=== PATIENT | female | born 1940 | race Caucasian/White ===

== ENCOUNTER → 2020-05-02 14:22 | Outpatient (BNVA) | payer MEDICARE, SELFPAY | PROVIDERS: Visit Provider Internal Medicine | DX: I25.10 Atherosclerotic heart disease of native coronary artery without angina pectoris (principal); I65.23 Occlusion and stenosis of bilateral carotid arteries; Z95.1 Presence of aortocoronary bypass graft; Z86.79 Personal history of other diseases of the circulatory system; Z79.899 Other long term (current) drug therapy | CPT/HCPCS: 99212 ==

== ENCOUNTER → 2020-08-17 14:02 | Outpatient (BNVA) | payer MEDICARE, SELFPAY | PROVIDERS: PCP Family Medicine; Referring Provider Family Medicine; Visit Provider Surgery | DX: K94.09 Other complications of colostomy (principal); K50.90 Crohn's disease, unspecified, without complications; I10 Essential (primary) hypertension; I25.10 Atherosclerotic heart disease of native coronary artery without angina pectoris; Z98.890 Other specified postprocedural states; Z95.1 Presence of aortocoronary bypass graft; Z79.899 Other long term (current) drug therapy | CPT/HCPCS: 99212 ==

== ENCOUNTER → 2020-10-25 10:33 | Outpatient (BNVA) | payer MEDICARE, SELFPAY | PROVIDERS: PCP Family Medicine; Referring Provider Family Medicine; Visit Provider Internal Medicine | DX: I25.10 Atherosclerotic heart disease of native coronary artery without angina pectoris (principal); I65.23 Occlusion and stenosis of bilateral carotid arteries; I45.10 Unspecified right bundle-branch block; Z95.1 Presence of aortocoronary bypass graft; Z86.79 Personal history of other diseases of the circulatory system | CPT/HCPCS: 93005; 99212 ==

== ENCOUNTER 2020-11-01 13:13 | Outpatient (REF) | payer MEDICARE, SELFPAY ==
--- NOTE | ~2020-11-01 | US_ITS ---
EXAMINATION: US EXTRACRANIAL CAROTID DUPLEX, BILATERAL CLINICAL INFORMATION: This is an 80-year-old female with a history of occlusion and stenosis of bilateral carotid arteries. COMPARISON: Comparison is made to a previous study dated 06/18/2012 which demonstrate a bilateral 0-49% internal carotid artery stenoses. TECHNIQUE: Real-time ultrasound and Doppler techniques (integrating B-mode 2-D vascular images, Doppler spectral analysis and color-flow Doppler imaging) were utilized to interrogate the extracranial carotid arteries, the vertebral arteries and proximal subclavian arteries bilaterally. The degree of stenosis is determined by criteria similar to NASCET. FINDINGS: Right Side: 1. There is minimal atherosclerotic plaque seen in the bifurcation/proximal ICA region. 2. The common carotid artery PSV proximally is 71 cm/s and distally 67 cm/s. 3. The proximal internal carotid artery velocities are 64 cm/s systolic and 12 cm/s diastolic. 4. The proximal external carotid artery PSV is 71 cm/s. 5. The vertebral artery shows antegrade flow. 6. The subclavian artery waveforms are normal. Left Side: 1. There is minimal atherosclerotic plaque seen in the bifurcation/proximal ICA region. 2. The common carotid artery PSV proximally is 80 cm/s and distally 60 cm/s. 3. The proximal internal carotid artery velocities are 40 cm/s systolic and 13 cm/s diastolic. 4. The proximal external carotid artery PSV is 63 cm/s. 5. The vertebral artery shows antegrade flow. 6. The subclavian artery waveforms are normal. US/US carotid duplex BI IMPRESSION: 1. RIGHT: Minimal, non-hemodynamically significant stenosis of the proximal right internal carotid artery corresponding to a 0-49% stenosis by velocity criteria. 2. LEFT: Minimal, non-hemodynamically significant stenosis of the proximal left internal carotid artery corresponding to a 0-49% stenosis by velocity criteria. 3. There is no change in the category severity of disease when compared to the previous study dated 06/18/2012. 4. Incidental note is made of a cardiac arrhythmia during the examination using duplex. This would be best evaluated with an EKG.
== END 2020-11-01 13:14 | disposition home or self-care (01) ==
LOC: HO.US 13:13
PROVIDERS: PCP Family Medicine; Visit Provider Internal Medicine
DX: I65.23 Occlusion and stenosis of bilateral carotid arteries (principal)
CPT/HCPCS: 93880

== ENCOUNTER → 2020-12-02 08:14 | Outpatient (REF) | payer MEDICARE, SELFPAY ==
--- NOTE | 2020-12-02 08:19 | HM_ITS ---
Total monitoring time 2 days and 3 hours. Underlying rhythm is sinus. Minimum heart rate 44/Min. Maximum 91/Min. Average 61/Min. About 72% of the time, heart rate less than 60/Min. No atrial fibrillation or flutter. No pauses. Frequent supraventricular ectopy with a burden of almost 9%. One short run of 12 beats. No patient events. MTDD
--- NOTE | 2020-12-02 08:19 | CA_ITS ---
Transthoracic Echocardiogram Patient (Last, First, Middle): Farhana Light E Gender: Female Date of : 1940 Age: 80 Procedure Date: 12/02/2020 Procedure Type: Transthoracic Echocardiogram Location: OP Height: 160.02 cm Weight: 88.45 kg BSA: 1.91 m2 Heart Rate: bpm BP: 129 / 62 mmHg Resident Care Manager: JES Referring MD: Klaus Moore MD Symptoms: I25.10 - Atherosclerotic heart disease of [place] coronary... Study Quality: Fair ECG Rhythm: Sinus Conclusions: - The left ventricular systolic function is normal. The calculated ejection fraction is 66% by biplane method. - No obvious valvular pathology seen on this study. Findings Left Ventricle Normal left ventricular cavity size. There is normal left ventricular wall thickness. The left ventricular systolic function is normal. The calculated ejection fraction is 66% by biplane method. There is no evidence of regional wall motion abnormalities. E/E prime ratio is between 8 and 15 consistent with indeterminate filling pressures. Evidence suggests grade I (mild) diastolic dysfunction. LV peak GLS -15.8%. Right Ventricle Normal right ventricular cavity size. There is low normal right ventricular systolic function. TAPSE 1.78cm. Atria The left atrium is mildly dilated. The right atrium is normal in size. Aortic Valve There is mild calcification of the aortic valve. There is no aortic valve stenosis. Trace to mild aortic regurgitation. Mitral Valve The mitral valve appears normal. There is mild mitral annular calcification. There is trace mitral valve regurgitation. There is no mitral valve stenosis. Pulmonic Valve The pulmonic valve was not well visualized. Tricuspid Valve There is trace tricuspid valve regurgitation. The pulmonary artery systolic pressure is normal. Great Vessels The aorta was not well visualized. The aortic annulus and aortic arch are normal in size. Venous The inferior vena cava is normal in size and collapses greater than 50% with inspiration. Pericardium/Pleural There is no evidence of pericardial effusion. Recommendations, Care & Conclusions No obvious valvular pathology seen on this study. Measurements 2D Linear Measurements IVSd: 1.21 0.6-0.9/0.6-1.0 cm LVIDd: 4.53 3.9-5.3/4.2-5.9 cm LVIDd Index: 2.37 2.4-3.2/2.2-3.1 cm/m2 LVIDs: 2.80 2.0-3.6 cm LVPWd: 0.98 0.7-1.1 cm Ao Root: 3.10 2.1-3.5 cm LA Diam: 4.10 2.7-3.8/3.0-4.0 cm LAIDs Index: 2.15 1.5-2.3 cm/m2 LV Mass: 218.50 67-162/88-224 g LV Mass Index: 114.40 43-95/49-115 g/m2 LVOT Diam: 2.20 3.0+(-)1.3 cm 2D Systolic Function EF 4C: 65.40 >55% EF 2C: 63.30 >55% EF BiP: 65.80 >55% Mitral Valve MV Pk E: 0.60 MV PK A: 0.43 MV Decel Time: 184.00 E/A: 1.40 E'Lateral: 6.53 E'Medial: 5.33 E/E' Med: 11.30 E/E' Lat: 9.20 PHT: 54.00 MVA PHT: 4.07 Decel [place]: 3.26 Aortic Valve AoV Pk Savage: 1.33 AoV Pk Grad: 7.00 AI Pk Savage: 4.50 AI [place]: 1.91 LVOT LVOT Pk Savage: 0.92 LVOT Mn Savage: 0.59 LVOT VTI: 0.24 LVOT Pk Grad: 3.00 LVOT Mn Grad: 2.00 LVOT Diam: 2.20 LVOT Area: 3.80 Diastolic Function MV Pk E: 0.60 MV Pk A: 0.43 E/A: 1.40 E'Medial: 5.33 E/E' Med: 11.30 E' Laterial: 6.53 E/E' Lat: 9.20 Right Ventricle TAPSE (mm): 1.78 Tricuspid Valve TR Pk Savage: 2.48 TR Pk Grad: 25.00 RA Press: 3.00 Great Vessels Aorta Ao Root-2D: 3.10 2.0-3.7 cm Updated in Other Vendor System with Status of Final Klaus Moore MD electronically signed on 12/03/2020 11:27:01 AM with status of Final
== END ==
LOC: HO.CARD 08:14
PROVIDERS: PCP Family Medicine; Visit Provider Internal Medicine
DX: I25.10 Atherosclerotic heart disease of native coronary artery without angina pectoris (principal); I49.9 Cardiac arrhythmia, unspecified; I45.19 Other right bundle-branch block; Z95.1 Presence of aortocoronary bypass graft
CPT/HCPCS: 93242; 93306

== ENCOUNTER → 2021-01-18 10:36 | Outpatient (BNVA) | payer MEDICARE, SELFPAY | PROVIDERS: PCP Family Medicine; Referring Provider Family Medicine; Visit Provider Internal Medicine | DX: I25.10 Atherosclerotic heart disease of native coronary artery without angina pectoris (principal); I65.23 Occlusion and stenosis of bilateral carotid arteries; I45.10 Unspecified right bundle-branch block; I49.8 Other specified cardiac arrhythmias; Z95.1 Presence of aortocoronary bypass graft; Z86.79 Personal history of other diseases of the circulatory system | CPT/HCPCS: 99212 ==

== ENCOUNTER → 2021-07-25 10:41 | Outpatient (BNVA) | payer MEDICARE, SELFPAY | PROVIDERS: PCP Family Medicine; Referring Provider Family Medicine; Visit Provider Internal Medicine | DX: I25.10 Atherosclerotic heart disease of native coronary artery without angina pectoris (principal); I65.23 Occlusion and stenosis of bilateral carotid arteries; I45.10 Unspecified right bundle-branch block; I49.8 Other specified cardiac arrhythmias; Z95.1 Presence of aortocoronary bypass graft; Z86.79 Personal history of other diseases of the circulatory system | CPT/HCPCS: 99212 ==

== ENCOUNTER → 2022-02-07 11:05 | Outpatient (BNVA) | payer MEDICARE, SELFPAY | PROVIDERS: PCP Family Medicine; Visit Provider Internal Medicine | DX: I25.10 Atherosclerotic heart disease of native coronary artery without angina pectoris (principal); I65.23 Occlusion and stenosis of bilateral carotid arteries; I45.10 Unspecified right bundle-branch block; I49.8 Other specified cardiac arrhythmias; I25.2 Old myocardial infarction; Z79.82 Long term (current) use of aspirin; Z95.1 Presence of aortocoronary bypass graft; Z79.899 Other long term (current) drug therapy | CPT/HCPCS: 93005; 99212 ==

== ENCOUNTER → 2022-10-31 10:18 | Outpatient (REF) | payer MEDICARE, SELFPAY ==
--- NOTE | 2022-10-31 10:20 | HM_ITS ---
* Total monitoring time 3 days. * Underlying rhythm is sinus. Average ventricular rate 63/Min. Range 37 to 112/Min. * Rare supraventricular ectopy with low burden. * Rare ventricular ectopy. * No significant pauses or AV blocks. * No patient markers are events in diary. MTDD
== END ==
LOC: HO.CARD 10:18
PROVIDERS: PCP Family Medicine; Visit Provider Internal Medicine
DX: R00.2 Palpitations (principal); I49.8 Other specified cardiac arrhythmias
CPT/HCPCS: 93242

== ENCOUNTER 2023-02-12 10:30 | Outpatient (AMB) | payer MEDICARE, SELFPAY ==
[2023-02-12 10:44] VITALS: BP 128/66; PULSE 59; BMI 32.3
--- NOTE | 2023-02-12 10:44 | MHC.OFFVIS ---
Intake Vital Signs 02/12/23 10:44 Height 5 ft 3 in Weight 182 lb 8.684 oz BMI 32.3 BP 128/66 Blood Pressure Location Lt brachial Position Sitting Pulse 59 Intake Visit Reasons: 1 yr f/up Intake Note: 1 year follow up w/ EKG Legal Service Specialist Required: No Accompanied by: Spouse Allergies No Known Allergies Allergy (Verified 02/12/23 10:50) Medication List - Last Reconciled 02/12/23 by Klaus Moore MD aspirin 81 mg PO DAILY atorvastatin 40 mg PO DAILY donepezil 5 mg PO DAILY mesalamine ER grams PO HPI HPI Comments History of Present Illness Details Farhana returns for follow-up regarding coronary disease. After admission for NSTEMI in 2019, she underwent cardiac catheterization showing 2 vessel CAD including LAD and RCA. Subsequently, underwent coronary artery bypass surgery. She does have aches and pains in different parts but otherwise nothing cardiac sounding. Definitely no angina. [facility] Medical History Atherosclerotic cardiovascular disease Bilateral carotid artery stenosis Crohn's disease History of hypertension Stomal prolapse Surgical History Status post coronary artery bypass graft History of incisional hernia repair History of colostomy (~06/16/18) History of appendectomy History of cardiac catheterization (~03/16/19) Family History Father Heart attack Mother No problems noted. Social History Patient Tobacco Use Status: Never used Tobacco Review of Systems Const Denies weakness Card Denies chest pain, Denies chest pain with activity, Denies syncope, Denies rapid heart rate, Denies pedal edema, Denies edema, Denies leg edema, Reports lightheadedness, Denies palpitations, Denies dyspnea, Denies dyspnea on exertion and Denies orthopnea Resp Denies cough, Denies dyspnea and Denies dyspnea on exertion GI Denies hematochezia and Denies change in stool character Musc Denies abnormal gait, Denies muscle cramps, Denies muscle weakness, Denies numbness, Denies radiating pain into limb and Denies tingling Neuro Denies abnormal gait, Denies syncope, Denies numbness, Denies tingling and Denies weakness Endo Denies palpitations Physical Exam Vital Signs: Last Vital Signs Pulse 59 02/12/23 10:44 BP 128/66 02/12/23 10:44 BMI result Body Mass Index 32.3 Const General: comfortable and no acute distress Orientation/consciousness: patient oriented x3 HEENT Other: Unremarkable Head: Yes normal to inspection Neck Neck: Yes normal visual inspection Chest Chest palpation & inspection: normal inspection of the chest Resp Auscultation: clear to auscultation bilaterally Cardio Palpation: normal PMI Heart sounds: S1 normal heart sound present, S2 normal heart sound present, no gallops, no murmurs and no rubs GI Palpation (GI): Soft to palpation Back/Spine/Pelvis Other: unremarkable Skin General skin exam: no rashes or lesions noted Neuro General: patient oriented x3 Extrem General: Yes normal to inspection Psych Mental Status: mental status grossly normal Office Procedures EKG Details: EKG with sinus bradycardia 59/Min; incomplete right bundle-branch block; nonspecific ST-T changes; top normal NV 200 milliseconds. [id number], Complete Assessment & Plan Assessment & Plan (1) Atherosclerotic cardiovascular disease: Code(s): I25.10 - Atherosclerotic heart disease of [place] coronary artery without angina pectoris Plan: s/p CABG. Stable. Continue aspirin and statins. Last LDL 51 mg/dL. (2) RBBB: Code(s): I45.10 - Unspecified right bundle-branch block Plan: Can be followed on EKGs. (3) Atrial arrhythmia: Code(s): I49.8 - Other specified cardiac arrhythmias Plan: In the last Holter, underlying rhythm was sinus but she has frequent supraventricular ectopy with a burden of almost 9%. There is increased risk of developing atrial fibrillation the future. Was on beta-blockers in the past but stopped due to side effects. In the repeat Holter, she has only rare supraventricular/ventricular ectopy. No specific management. Coding Level of Care Code Est Pt Level 3 (06289) Diagnoses Atherosclerotic cardiovascular disease I25.10 RBBB I45.10 Atrial arrhythmia I49.8 CPT Codes EKG - CPT: 33866-[id number], Complete ([id number])
== END 2023-02-12 10:59 | disposition home or self-care (01) ==
PROVIDERS: Visit Provider Internal Medicine
DX: I25.10 Atherosclerotic heart disease of native coronary artery without angina pectoris (principal); I45.10 Unspecified right bundle-branch block; I49.8 Other specified cardiac arrhythmias
CPT/HCPCS: 93010; 99213

== ENCOUNTER → 2023-02-12 10:30 | Outpatient (BNVA) | payer MEDICARE, SELFPAY | PROVIDERS: Visit Provider Internal Medicine | DX: I25.10 Atherosclerotic heart disease of native coronary artery without angina pectoris (principal); I45.10 Unspecified right bundle-branch block; I49.8 Other specified cardiac arrhythmias; I25.2 Old myocardial infarction; Z79.82 Long term (current) use of aspirin; Z79.899 Other long term (current) drug therapy; Z95.1 Presence of aortocoronary bypass graft | CPT/HCPCS: 93005; 99212 ==

== ENCOUNTER 2023-03-20 12:37 | Observation (INO) | payer MEDICARE, SELFPAY ==
--- NOTE | ~2023-03-20 | XR_ITS ---
EXAMINATION: XR CHEST CLINICAL INFORMATION: Syncope. Fall. COMPARISON: Previous chest x-ray most recent March 2019 TECHNIQUE: Frontal view of the chest was obtained. FINDINGS: There are new median sternotomy wires and mediastinal clips. Cardiac and mediastinal contours are otherwise stable. Lungs are clear. No pleural effusion or pneumothorax. Only structures are unremarkable. XR/XR chest 1V IMPRESSION: No evidence for acute disease in the chest.
--- NOTE | ~2023-03-20 | CT_ITS ---
EXAMINATION: CT CERVICAL SPINE WITHOUT CONTRAST CLINICAL INFORMATION: Neck pain. Trauma. COMPARISON: None available. TECHNIQUE: Axial images through the cervical spine without IV contrast. Sagittal and coronal reconstructions on the technologist workstation were performed. This CT examination was performed using dose optimization techniques as appropriate, variously including the following: *Automated exposure control *Adjustment of mA and/or kV according to patient size (this includes techniques or standardized protocols for targeted exams where dose is matched to indication/reason for exam; i.e. extremities or head) *Use of iterative reconstruction technique This CT examination was performed using dose optimization techniques as appropriate, variously including the following: *Automated exposure control *Adjustment of mA and/or kV according to patient size (this includes techniques or standardized protocols for targeted exams where dose is matched to indication/reason for exam; i.e. extremities or head) *Use of iterative reconstruction technique DLP: 288 mGy-cm FINDINGS: Bone alignment is normal. No fracture or dislocation. There is multilevel degenerative spondylosis and degenerative disc disease from C3-C4 to C7-T1. There are degenerative changes at the C1 dens articulation. Prevertebral soft tissues are normal. Visualized lung apices are clear. CT/CT cervical spine wo IV con IMPRESSION: Degenerative changes. No fracture or dislocation seen. Fleischner guidelines were followed.
--- NOTE | ~2023-03-20 | CT_ITS ---
EXAMINATION: CT ANGIOGRAM OF THE CHEST WITH AND WITHOUT CONTRAST (CT PULMONARY ANGIOGRAM FOR PE) CLINICAL INFORMATION: Reason for Exam sob --> syncope COMPARISON: None available. TECHNIQUE: Prior to contrast administration, noncontrast localization images were obtained. Subsequently, multidetector volumetric imaging was performed from the thoracic inlet to below the diaphragms following the administration of 80 mL Omnipaque 350 intravenous contrast. No contrast reaction reported Sagittal, coronal, and MIP oblique sagittal reformatted images were obtained on the CT workstation, uploaded to PACS, and reviewed. This CT examination was performed using dose optimization techniques as appropriate, variously including the following: *Automated exposure control *Adjustment of mA and/or kV according to patient size (this includes techniques or standardized protocols for targeted exams where dose is matched to indication/reason for exam; i.e. extremities or head) *Use of iterative reconstruction technique Total exam dose-length product 299 mGy-cm FINDINGS: QUALITY OF STUDY/CONTRAST BOLUS: Satisfactory. PULMONARY ARTERIES: No pulmonary emboli. THORACIC AORTA: No aneurysm. LUNG: No focal consolidation, nodules or masses. Subsegmental atelectasis at the lung bases. PLEURA: No pleural effusion or pneumothorax. MEDIASTINUM: Enlarged heart. Post-CABG changes. No pericardial effusion. No hilar or mediastinal lymphadenopathy. No evidence of septal bowing or right heart strain. CORONARY ARTERY CALCIFICATION: Severe. CHEST WALL/AXILLA: No axillary or internal mammary lymphadenopathy. OSSEOUS STRUCTURES: No acute or suspicious osseous abnormality. Degenerative changes of the spine. UPPER ABDOMEN: See abdominal and pelvic CT report from the same day. No reflux of contrast into the hepatic veins to suggest elevated right heart pressures. CT/CT angio chest PE protocol IMPRESSION: No evidence of pulmonary embolism. No acute findings in the chest. VTE: negative
--- NOTE | ~2023-03-20 | CT_ITS ---
EXAMINATION: CT HEAD WITHOUT CONTRAST CLINICAL INFORMATION: Syncope. Head trauma. COMPARISON: Previous head CT from 2017 TECHNIQUE: Contiguous axial imaging was performed from the skull base to vertex without intravenous administration of contrast. This CT examination was performed using dose optimization techniques as appropriate, variously including the following: *Automated exposure control *Adjustment of mA and/or kV according to patient size (this includes techniques or standardized protocols for targeted exams where dose is matched to indication/reason for exam; i.e. extremities or head) *Use of iterative reconstruction technique DLP: 558 mGy-cm FINDINGS: There is no evidence of an extra-axial collection. There is no evidence of intra or extra-axial hemorrhage. The ventricles and extra-axial CSF spaces are prominent just above mild generalized atrophy. There is nonspecific periventricular white matter disease. No mass, mass effect or infarct. No skull fracture. Visualized paranasal sinuses, mastoid air cells and middle ears are clear. CT/CT head/brain wo IV con IMPRESSION: No acute intracranial pathology. Generalized atrophy and nonspecific periventricular matter disease.
--- NOTE | ~2023-03-20 | US_ITS ---
EXAMINATION: US EXTRACRANIAL CAROTID DUPLEX, BILATERAL CLINICAL INFORMATION: Carotid artery stenosis COMPARISON: Carotid duplex on 11/01/2020 TECHNIQUE: Real-time ultrasound and Doppler techniques (integrating B-mode 2-D vascular images, Doppler spectral analysis and color-flow Doppler imaging) were utilized to interrogate the extracranial carotid arteries, the vertebral arteries and proximal subclavian arteries bilaterally. The degree of stenosis is determined by criteria similar to NASCET. FINDINGS: Right Side: 1. There is minimal atherosclerotic plaque seen in the bifurcation/proximal ICA region. 2. The common carotid artery PSV proximally is 92 cm/s and distally 77 cm/s. 3. The proximal internal carotid artery velocities are 52 cm/s systolic and 7 cm/s diastolic. 4. The proximal external carotid artery PSV is 89 cm/s. 5. The vertebral artery shows antegrade flow. 6. The subclavian artery waveforms are normal. Left Side: 1. There is mild atherosclerotic plaque seen in the bifurcation/proximal ICA region. 2. The common carotid artery PSV proximally is 92 cm/s and distally 80 cm/s. 3. The proximal internal carotid artery velocities are 48 cm/s systolic and 13 cm/s diastolic. 4. The proximal external carotid artery PSV is 90 cm/s. 5. The vertebral artery shows antegrade flow. 6. The subclavian artery waveforms are normal. US/US carotid duplex BI IMPRESSION: 1. RIGHT: Minimal, non-hemodynamically significant stenosis of the proximal right internal carotid artery corresponding to a 0-49% stenosis by velocity criteria. 2. LEFT: Minimal, non-hemodynamically significant stenosis of the proximal left internal carotid artery corresponding to a 0-49% stenosis by velocity criteria.
--- NOTE | ~2023-03-20 | CT_ITS ---
EXAMINATION: CT ABDOMEN AND PELVIS WITH CONTRAST CLINICAL INFORMATION: Syncope COMPARISON: Previous CT of the abdomen and pelvis April 2018 TECHNIQUE: Multidetector volumetric images were obtained from the superior aspect of the liver through the pubic symphysis following administration 85 mL of Omnipaque 350 intravenous contrast. Sagittal and coronal reformatted images were obtained on the technologist's workstation. Oral contrast: Yes This CT examination was performed using dose optimization techniques as appropriate, variously including the following: *Automated exposure control *Adjustment of mA and/or kV according to patient size (this includes techniques or standardized protocols for targeted exams where dose is matched to indication/reason for exam; i.e. extremities or head) *Use of iterative reconstruction technique DLP: 299 mGy-cm FINDINGS: LUNG BASES: The visualized lung bases are unremarkable. LIVER, GALLBLADDER, AND BILIARY TREE: The liver is normal in size, shape, and attenuation. No focal hepatic lesion or biliary ductal dilatation is present. Gallstones. Gallbladder is otherwise unremarkable. PANCREAS: Unremarkable. SPLEEN: Unremarkable. ADRENAL GLANDS: Unremarkable. KIDNEYS AND URETERS: Severe left hydronephrosis and left proximal ureteral dilatation. This is increased compared to 2019 exam. The left ureter is dilated down to an area where there is irregular soft tissue in the left retroperitoneum adjacent to the proximal sigmoid colon. No stone is seen. The right kidney is normal. BLADDER: Unremarkable. GASTROINTESTINAL TRACT: There are postsurgical changes from a transverse colon loop colostomy. There is diverticulosis of the colon. There is a segment of abnormal of tethered loops of small and large bowel left lower. There may be some mild wall thickening of the involved sigmoid colon. There is adjacent abnormal soft tissue in the retroperitoneum likely causing left hydronephrosis and ureteral dilatation. Findings are similar to older exam 2019. This makes neoplastic process unlikely favors an infectious or inflammatory process. Small and large bowel is otherwise normal. Appendix not definitely seen. ABDOMINAL WALL: There is a low abdominal diffuse abdominal wall bulge or broad-based hernia without and neck containing small bowel. No evidence of obstruction. LYMPH NODES: Normal. VASCULAR: Atherosclerotic disease. 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 Follow-up OB ultrasound recommended. Adnexa appear unremarkable. OSSEOUS STRUCTURES: L4 pars defect and mild interstitial disease in similar to previous exam. Degenerative changes spine CT/CT abdomen pelvis w IV con IMPRESSION: Severe left hydronephrosis and proximal ureteral dilatation increased from April 2018 left ureter appears dilated secondary to abnormal soft tissue left retroperitoneum. There are tethered loops of small and large bowel seen in this region similar to April 2018 exam and post infectious or inflammatory scarring over neoplasm is favored. Transverse loop colostomy. Mild diverticulosis. Large lower abdominal wall bulge/broad-based hernia with wide neck containing small bowel. No evidence of obstruction. Question endometrial fluid or thickening. Follow-up pelvic ultrasound recommended No significant abnormality. Fleischner guidelines were followed.
--- NOTE | 2023-03-20 12:45 | ECG_ITS ---
Test Reason : SYNCOPE Blood Pressure : / mmHG Vent. Rate : 056 BPM Atrial Rate : 056 BPM P-R Int : 232 ms QRS Dur : 122 ms QT Int : 470 ms P-R-T Axes : 008 -35 004 degrees QTc Int : 453 ms Sinus bradycardia with 1st degree A-V block Left axis deviation Right bundle branch block Possible Lateral infarct (cited on or before 14-MAR-2019) Abnormal ECG When compared with ECG of 14-MAR-2019 15:12, SC interval has increased Right bundle branch block is now Present Referred By: Rohit Shah Electronically Signed By:DOROTA VELASQUEZ
--- NOTE | 2023-03-20 12:47 | ED_ITS ---
HPI - General Adult General Chief complaint: Syncope Stated complaint: SYNCOPAL EPISODE AT [employer] PER EMS Time Seen by Provider: 03/20/23 12:45 Source: patient Mode of arrival: ambulatory Limitations: other (Poor historian) History of Present Illness HPI narrative: This is a 83-year-old female history of mild dementia atrial arrhythmia colostomy in place since 2019, carotid stenosis, right bundle-branch block, status post coronary artery bypass graft, presenting to the emergency department status post witnessed syncopal episode while at the grocery store with an episode of around 30 seconds of loss of consciousness. Patient tells me she was not feeling great this morning she felt slightly lightheaded and short of breath since she awoke. Proceeded to go to the grocery store where she does not really remember what happened. At this time denies fevers, chills, chest pain, shortness of breath, headache, vision changes, dizziness, weakness, nausea, vomiting, diarrhea, abdominal pain Not on thinners Related Data Home Medications Medication Instructions Recorded Confirmed aspirin 81 mg tablet,delayed 81 mg PO DAILY 05/02/20 02/12/23 release atorvastatin 40 mg tablet 40 mg PO DAILY 05/02/20 02/12/23 donepezil 5 mg tablet 5 mg PO DAILY 02/12/23 02/12/23 mesalamine 0.375 gram g PO 02/12/23 02/12/23 capsule,extended release 24 hr Allergies Allergy/AdvReac Type Severity Reaction Status Date / Time No Known Allergies Allergy Verified 02/12/23 10:50 Review of Systems 2 Review of Systems: Yes all other systems are reviewed and are negative PMFSH Past Medical History Attestation statement: The following information was validated with the patient. Source: old records reviewed and nursing notes reviewed Medical History Stomal prolapse Crohn's disease Bilateral carotid artery stenosis History of hypertension Atherosclerotic cardiovascular disease Surgical History Status post coronary artery bypass graft History of incisional hernia repair History of colostomy (~06/16/18) History of appendectomy History of cardiac catheterization (~03/16/19) Family History Family History Father Heart attack Mother No problems noted. Social History Social History Patient Tobacco Use Status: Never used Tobacco Smoked in Last 30 Days: No Use of substances other than those prescribed or required for medical reasons: No Advance Directives: No Advance Directives Information Provided: Yes Physical Exam ED Vital Signs: Vital Signs - 24 hr 03/20/23 12:51 03/20/23 13:04 Temperature 97.6 F Pulse Rate 58 Respiratory Rate 16 Blood Pressure 103/49 L Pulse Oximetry 97 97 Oxygen Delivery Method Room Air Room Air BMI result Body Mass Index 32.6 Vital signs stable Appearance: Alert.? Oriented X3.? No acute distress.? Head: Normocephalic, atraumatic, no step-offs or deformities Eyes: Pupils equal, round and reactive to light.? CVS: Normal heart rate and rhythm.? Pulses normal.? Respiratory: No respiratory distress.? Breath sounds normal.? Abdomen: Soft and nontender.? Skin: Skin warm and dry.? Normal skin color.? Normal skin turgor.? Extremities: No lower extremity edema.? No calf ttp. 5/5 strength to bilateral upper and lower extremities Back: No midline tenderness, no C-spine tenderness, full range of motion, no CVA tenderness bilaterally Neuro: Oriented X 3.? No motor deficit.? No sensory deficit. CN 2-12 intact . 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 Normal [id number], [id number]. NIH stroke scale 0 Course Reevaluation(s) Reevaluation #1: CBC with leukocytosis and left shift. Chemistry no acute findings requiring intervention. Troponin pending. D-dimer positive. CTA ordered. UA without infection. Chest x-ray no signs of acute disease. Time: 16:31 Reevaluation #2: Sign out to aleks [place] Time: 16:31 Medical Decision Making Medical Decision Making [facility] Narrative: 1254 83-year-old female presents status post witnessed syncope at the grocery store. Denies any pain at this time but does report lightheadedness and shortness of breath prior to the fall earlier this morning. Not on blood thinners Physical exam benign History and physical exam concerning for possible arrhythmia versus PE versus vasovagal versus orthostatic hypotension. Will rule out UTI, electrolyte abnormalities traumatic injury to head, neck, chest, abdomen or pelvis. History and physical exam also slightly suspicious for ACS patient poor historian. Will have to do a cardiac workup. Plan labs, imaging, urine, EKG Differential Diagnosis Differential Diagnoses: The differential diagnosis associated with the presentation includes History and physical exam concerning for possible arrhythmia versus PE versus vasovagal versus orthostatic hypotension. Will rule out UTI, electrolyte abnormalities traumatic injury to head, neck, chest, abdomen or pelvis. History and physical exam also slightly suspicious for ACS patient poor historian. Will have to do a cardiac workup. Admission/Observation Consideration of admission/observation: Escalation of care including admission/observation considered Lab Data MDM Lab Attestation statement: I reviewed the patient's lab results. 03/20/23 16:02 03/20/23 16:02 Labs: Lab Results 03/20/23 03/20/23 Range/Units 15:55 16:02 WBC 13.3 H (4.8-10.8) X10*3/uL RBC 4.54 (4.20-5.50) X10*6/uL Hgb 12.4 (12.0-16.0) g/dl Hct 39.2 (37.0-47.0) % MCV 86.3 (80.0-98.0) fL MCH 27.3 (27.0-33.0) pg MCHC 31.6 (31.0-35.0) g/dl RDW 15.7 (11.0-16.0) % Plt Count 336 (160-400) X10*3/uL MPV 9.4 (9.4-12.3) fL Immature Gran % (Auto) 0.4 (0.0-0.4) % Neut % (Auto) 87.3 H (45-73) % Lymph % (Auto) 6.2 L (20-40) % Noble % (Auto) 5.3 (2-11) % Eos % (Auto) 0.5 (0-4) % Baso % (Auto) 0.3 (0-2) % Lymph # (Auto) 0.8 L (1.2-4.9) X10*3/uL Noble # (Auto) 0.7 (0.1-1.2) X10*3/uL Eos # (Auto) 0.1 (0.0-0.4) X10*3/uL Baso # (Auto) 0.0 (0.0-0.2) X10*3/uL Abs Immat Gran (auto) 0.05 H (0.00-0.03) X10*3/uL Absolute Neuts (auto) 11.6 H (2.0-8.3) x10*3/uL Absolute Nucleated RBC 0.000 (0.0-0.012) X10*3/uL Nucleated RBC % (auto) 0.0 (0.0-0.2) /100WBC PT 13.4 H (11.1-13.3) SEC INR 1.1 (0.9-1.1) D-Dimer High Sensitivty 472 NG/ML Sodium 141 (135-145) mmol/L Potassium 4.0 (3.3-5.1) mmol/L Chloride 104 (96-108) mmol/L Carbon Dioxide 28 (22-29) mmol/L Anion Gap 13 (12-20) BUN 11 (9-16) mg/dL Creatinine 0.81 (0.5-1.4) mg/dL Estim Creat Clear Calc 51.9 Estimated GFR > 60 Random Glucose 114 (60-115) mg/dL Calcium 9.6 (8.4-10.2) mg/dL Magnesium 1.9 (1.6-2.6) mg/dL Total Bilirubin 0.5 (0.0-1.0) mg/dL AST 15 (5-31) U/L ALT 11 (0-31) U/L Alkaline Phosphatase 138 H (39-117) U/L Total Protein 7.7 (6.5-8.0) g/dL Albumin 4.2 (3.5-5.0) g/dL Lipase 22 (8-78) U/L Urine Color Yellow Urine Appearance Clear Urine pH 7.0 (5.0-9.0) Ur Specific Hermon <= 1.005 (1.005-1.025) Urine Protein Negative (Neg-Trace) mg/dL Urine Glucose (UA) Negative (Negative) mg/dL Urine Ketones Negative (Negative) mg/dL Urine Blood Negative (Negative) Urine Nitrite Negative (Negative) Ur Leukocyte Esterase Negative (Negative) Discharge Plan Discharge Clinical Impression: Syncope Patient Disposition: Still a Patient Prescriptions: No Action atorvastatin 40 mg tablet 40 mg PO DAILY aspirin 81 mg tablet,delayed release (DR/EC) 81 mg PO DAILY mesalamine 0.375 gram capsule,extended release 24hr PO donepezil 5 mg tablet 5 mg PO DAILY
[2023-03-20 12:51] VITALS: BP 103/49; BP 142/87; PULSE 58; PULSE 62; RESP 16; TEMP 36.4; O2SAT 97; O2SAT 99; BMI 32.6
[2023-03-20 13:04] VITALS: O2SAT 97
[2023-03-20 16:08] LABS: MANUAL DIFF FLAG NO
[2023-03-20 16:11] LABS: Basophils Percent Auto 0.3 % (0-2); Eosinophils Absolute Auto 0.1 X10*3/uL (0.0-0.4); Eosinophils Percent Auto 0.5 % (0-4); Hematocrit 39.2 % (37.0-47.0); Hemoglobin 12.4 g/dl (12.0-16.0); Imm Gran Abs Auto 0.05 X10*3/uL (0.00-0.03); Imm Gran Pct Auto 0.4 % (0.0-0.4); Lymphocytes Absolute Auto 0.8 X10*3/uL (1.2-4.9); Lymphocytes Percent Auto 6.2 % (20-40); Mean Corpuscular HGB Conc 31.6 g/dl (31.0-35.0); Mean Corpuscular Hemoglobin 27.3 pg (27.0-33.0); Mean Corpuscular Volume 86.3 fL (80.0-98.0); Mean Platelet Volume 9.4 fL (9.4-12.3); Monocytes Absolute Auto 0.7 X10*3/uL (0.1-1.2); Monocytes Percent Auto 5.3 % (2-11); Neutrophils Absolute Auto 11.6 x10*3/uL (2.0-8.3); Neutrophils Percent Auto 87.3 % (45-73); Platelet Count 336 X10*3/uL (160-400); Red Blood Count 4.54 X10*6/uL (4.20-5.50); Red Cell Distribution Width 15.7 % (11.0-16.0); White Blood Count 13.3 X10*3/uL (4.8-10.8)
[2023-03-20 16:11] LABS: Appearance Urine Clear; Color Urine Yellow; Glucose Urine UA Negative (Negative); Leukocyte Esterase Urine Negative (Negative); Nitrite Urine Negative (Negative); Specific Gravity - Urine <= 1.005 (1.005-1.025); Urine Blood Negative (Negative); Urine Ketones Negative (Negative); Urine Protein Negative (Neg-Trace)
[2023-03-20 16:16] LABS: INTERNATIONAL NORM RATIO 1.1 (0.9-1.1); Prothrombin Time 13.4 SEC (11.1-13.3)
[2023-03-20 16:18] LABS: D Dimer High Sensitivity 472 NG/ML
[2023-03-20 16:26] LABS: Alanine Aminotransferase 11 U/L (0-31); Albumin Level 4.2 g/dL (3.5-5.0); Alkaline Phosphatase 138 U/L (39-117); Anion Gap 13 (12-20); Aspartate Amino Transferase 15 U/L (5-31); Bilirubin Total 0.5 mg/dL (0.0-1.0); Blood Urea Nitrogen 11 mg/dL (9-16); Calcium 9.6 mg/dL (8.4-10.2); Carbon Dioxide 28 mmol/L (22-29); Chloride 104 mmol/L (96-108); Creatinine Clr Calc Pharmacy 51.9; Estimated Glomerular Filt Rate > 60; Glucose Random 114 mg/dL (60-115); Lipase 22 U/L (8-78); Magnesium 1.9 mg/dL (1.6-2.6); Sodium 141 mmol/L (135-145); Total Protein 7.7 g/dL (6.5-8.0)
[2023-03-20 16:34] LABS: Troponin-I High Sensitivity < 2.7 ng/L (<3.5-17.0)
[2023-03-20] MEDS: iohexoL 350 MG/ML 100 ML INFUS..BTL 85 ML IV (18:02)
[2023-03-20 20:00] VITALS: BP 110/52; PULSE 62; RESP 16; O2SAT 97
--- NOTE | 2023-03-20 20:16 | PC.NURSE ---
Assumed care of pt. Pt provided with PO food/drink per provider in setting of negative imagine.
[2023-03-20 21:08] LABS: Troponin-I High Sensitivity < 2.7 ng/L (<3.5-17.0)
[2023-03-20 21:34] VITALS: BP 170/57; PULSE 77
[2023-03-20 21:35] VITALS: BP 116/67; BP 149/86; PULSE 104; PULSE 86
[2023-03-20 21:37] VITALS: BP 107/57; PULSE 78; RESP 20; TEMP 36.8; O2SAT 96
[2023-03-20] MEDS: 0.9 % Sodium Chloride 1,000 ML 999 ML IV (21:46)
--- NOTE | 2023-03-20 22:06 | PHA.MEDREC ---
Pharmacy Consult ? Medication Reconciliation Pharmacy has reviewed the medication reconciliation completed by provider. Patient dose of donepezil recently increase to 10 mg. Provider aware and order adjust. Patricia De Leon, DarekD
--- NOTE | 2023-03-20 23:46 | PM.IMHP ---
History of Present Illness Date of Service: 03/20/23 Attending physician on admission: Ramin Esposito Chief Complaint: Loss of consciousness Farhana Light 83 years old woman with past medical history significant for dementia, Crohn's disease status post colostomy, CAD status post CABG and hyperlipidemia was brought to the emergency department after she had an event of loss of consciousness today while at the grocery store. Her was with her and witnessed the event. He stated that she recovered consciousness pretty quickly returned to her baseline. The patient stated that she felt lightheaded and nauseous (no vomiting) before passing out. She has not noted increased output out of her colostomy. She denied palpitations, chest pain or shortness on breath. She also denies headache, focal weakness, gait or speech difficulty. She denied any cardiopulmonary, gastrointestinal or genitourinary symptoms. There is no history of alcohol abuse, tobacco smoking or illicit drug use. She does not have history of arrhythmias and is not taking diuretics. In the ED, she was found to have stable vital signs. Her last blood pressure is 107/57. Blood workup is remarkable for leukocytosis, 13.3. There are no electrolyte imbalances. Liver and renal function are normal. Troponin is negative x2. EKG showed right bundle branch block, sinus bradycardia 56 beats per minutes and first-degree AV block. Currently her cardiac monitoring is showing a heart rate of 80 bpm. 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 ED tx: NS 1 L bolus. Review of Systems Review of Systems: All 12 systems were reviewed and normal except as noted in HPI. [facility] Medical History Stomal prolapse Crohn's disease Bilateral carotid artery stenosis History of hypertension Atherosclerotic cardiovascular disease Family History Father Heart attack Mother No problems noted. Surgical History Status post coronary artery bypass graft History of incisional hernia repair History of colostomy (~06/16/18) History of appendectomy History of cardiac catheterization (~03/16/19) Social History Patient Tobacco Use Status: Never used Tobacco Smoked in Last 30 Days: No Use of substances other than those prescribed or required for medical reasons: No Advance Directives: No Advance Directives Information Provided: Yes Meds Allergies Allergy/AdvReac Type Severity Reaction Status Date / Time No Known Allergies Allergy Verified 02/12/23 10:50 Active Medications: Current Medications Acetaminophen (Acetaminophen 325 Mg Tablet) 975 mg PO Q6H PRN PRN Reason: Pain, Mild (Pain Scale 1-3) Aspirin (Aspirin Enteric Coated 81 Mg Tablet.) 81 mg PO DAILY MIGUEL Atorvastatin Calcium (Atorvastatin Calcium 40 Mg Tablet) 40 mg PO DAILY MIGUEL Donepezil HCl (Donepezil Hcl 10 Mg Tablet) 10 mg PO DAILY MIGUEL Melatonin (Melatonin 3 Mg Tablet) 6 mg PO BEDTIME PRN PRN Reason: Insomnia Sodium Chloride (0.9 % Sodium Chloride Flush 3 Ml Syringe) 3 ml IVFLUSH QSHIFT REPLACED BY [facility] Home Medications Medication Instructions Recorded Confirmed Last Taken Type aspirin 81 mg tablet,delayed 81 mg PO DAILY 05/02/20 03/20/23 Unknown History release atorvastatin 40 mg tablet 40 mg PO DAILY 05/02/20 03/20/23 Unknown History donepezil 5 mg tablet 10 mg PO DAILY 02/12/23 03/20/23 Unknown History mesalamine 0.375 gram 0.75 g PO DAILY 02/12/23 03/20/23 Unknown History capsule,extended release 24 hr Physical Exam Vital Signs and Narrative: Vital Signs: Last Vital Signs Temp 98.3 F 03/20/23 21:37 Pulse 78 03/20/23 21:37 Resp 20 03/20/23 21:37 BP 107/57 L 03/20/23 21:37 Pulse Ox 96 03/20/23 21:37 O2 Del Method Room Air 03/20/23 21:37 BMI result Body Mass Index 32.6 Constitutional - Awake and Alert, No apparent distress. Afebrile. Cooperative. HEENT - PERRLA, EOMI. Cardiovascular - S1S2, RRR, No edema Respiratory - Normal lung expansion, Normal respiratory effort, No respiratory distress, CTA bilaterally Gastrointestinal - NT / ND; +BS; No rebound or guarding. Colostomy bag in place (back is full) - No CVA tenderness Extremities - No calf tenderness bilaterally, no swelling Musculoskeletal - Normal inspection, normal ROM Skin - Warm/Dry Neurological - Alert & oriented x3. No focal weakness grossly noted. Normal speech. Normal behavior. Psychological - Appropriate affect Results Labs 03/20/23 16:02 03/20/23 16:02 Labs: Laboratory Results - last 24 hr 03/20/23 03/20/23 15:55 16:02 MCV 86.3 MCH 27.3 MCHC 31.6 RDW 15.7 Plt Count 336 MPV 9.4 Immature Gran % (Auto) 0.4 Neut % (Auto) 87.3 H Lymph % (Auto) 6.2 L [place] % (Auto) 5.3 Eos % (Auto) 0.5 Baso % (Auto) 0.3 Lymph # (Auto) 0.8 L [place] # (Auto) 0.7 Eos # (Auto) 0.1 Baso # (Auto) 0.0 Abs Immat Gran (auto) 0.05 H Absolute Neuts (auto) 11.6 H Absolute Nucleated RBC 0.000 Nucleated RBC % (auto) 0.0 PT 13.4 H INR 1.1 D-Dimer High Sensitivty 472 Anion Gap 13 Estim Creat Clear Calc 51.9 Estimated GFR > 60 Random Glucose 114 Calcium 9.6 Magnesium 1.9 Total Bilirubin 0.5 AST 15 ALT 11 Alkaline Phosphatase 138 H Total Protein 7.7 Albumin 4.2 Lipase 22 Urine Color Yellow Urine Appearance Clear Urine pH 7.0 Ur Specific [place] <= 1.005 Urine Protein Negative Urine Glucose (UA) Negative Urine Ketones Negative Urine Blood Negative Urine Nitrite Negative Ur Leukocyte Esterase Negative Imaging Radiologist's Impressions: Impressions Chest X-Ray 03/20/23 13:30 IMPRESSION: No evidence for acute disease in the chest. Head CT 03/20/23 18:00 IMPRESSION: No acute intracranial pathology. Generalized atrophy and nonspecific periventricular matter disease. Cervical Spine CT 03/20/23 18:01 IMPRESSION: Degenerative changes. No fracture or dislocation seen. Fleischner guidelines were followed. Abdomen/Pelvis CT 03/20/23 18:27 IMPRESSION: Severe left hydronephrosis and proximal ureteral dilatation increased from April 2018 left ureter appears dilated secondary to abnormal soft tissue left retroperitoneum. There are tethered loops of small and large bowel seen in this region similar to April 2018 exam and post infectious or inflammatory scarring over neoplasm is favored. Transverse loop colostomy. Mild diverticulosis. Large lower abdominal wall bulge/broad-based hernia with wide neck containing small bowel. No evidence of obstruction. Question endometrial fluid or thickening. Follow-up pelvic ultrasound recommended No significant abnormality. Fleischner guidelines were followed. Chest CTA 03/20/23 18:27 IMPRESSION: No evidence of pulmonary embolism. No acute findings in the chest. VTE: negative Assessment and Plan (1) Syncope: Status: Acute (2) History of hypertension: Status: Acute Plan Farhana Light 83 years old woman presents with: Syncope. Keep in observation. Orthostatic vital signs. Echocardiogram and bilateral carotid ultrasound. Cardiology consult. Leukocytosis, cause unclear. No serious criteria or evidence of acute infection. Possible dehydration. Normal saline given in the emergency department. We will continue to monitor WBC count. Severe left-sided hydronephrosis, seems to be chronic but getting worse. Patient denies flank pain or any acute urinary symptoms. To consider Urology consult. Coronary artery disease. No chest pain. Continue statin and aspirin. History of bilateral carotid artery occlusion and stenosis. Last carotid ultrasound 2020 showed no significant stenosis. Will obtain bilateral carotid ultrasound. Hyperlipidemia. Continue statin. Crohn's disease. Continue mesalamine. Dementia. Continue donepezil. DVT prophylaxis: SCDs. Code status: Full. Quality Stroke Does the patient have a stroke diagnosis?: No VTE Prior VTE?: No VTE Risk Level:: Medical - moderate - high VTE Device Contraindication: N/A - Device Ordered VTE Drug Contraindication: Treatment Not Indicated
[2023-03-21] VITALS (9 sets, daily range): BP systolic 124–159; BP diastolic 48–73; PULSE 57–89; RESP 10–20; TEMP 36.2–36.6; O2SAT 94–98
[2023-03-21] MEDS: 0.9 % Sodium Chloride Flush 3 ML SYRINGE IVFLUSH ×3 (01:47→15:39)
--- NOTE | 2023-03-21 02:52 | PC.NURSE ---
Emptied pt colostomy bag.
[2023-03-21 06:14] LABS: Troponin-I High Sensitivity 4.1 ng/L (<3.5-17.0)
--- NOTE | 2023-03-21 07:00 | CA_ITS ---
Transthoracic Echocardiogram Patient (Last, First, Middle): Farhana Light E Gender: Female Date of : 1940 Age: 83 Procedure Date: 03/21/2023 Procedure Type: Transthoracic Echocardiogram Location: ER Height: 160. cm Weight: 83.46 kg BSA: 1.87 m2 Heart Rate: 60 bpm BP: 134 / 61 mmHg Industrial Relations Specialist: YAYA Referring MD: Ramin Esposito MD Symptoms: Syncope Study Quality: Adequate ECG Rhythm: Sinus Conclusions: - The left ventricular systolic function is normal. The visually estimated ejection fraction is between 65-70%. - No obvious valvular pathology seen on this study. Findings Left Ventricle Normal left ventricular cavity size. There is normal left ventricular wall thickness. The left ventricular systolic function is normal. The visually estimated ejection fraction is between 65-70%. There is no evidence of regional wall motion abnormalities. Diastolic function is normal for age. LV peak GLS -20%. Right Ventricle Normal right ventricular cavity size and systolic function. Atria Both atria are normal in size. Aortic Valve There is a normal trileaflet aortic valve. There is mild calcification of the aortic valve. There is no aortic valve stenosis. There is trace (trivial) aortic valve regurgitation. Mitral Valve The mitral valve appears normal. There is trace mitral valve regurgitation. There is no mitral valve stenosis. Pulmonic Valve The pulmonic valve is likely normal. Tricuspid Valve There is trace tricuspid valve regurgitation. There is no evidence of pulmonary hypertension. Great Vessels The asc aorta is normal in size. Venous The inferior vena cava is normal in size and collapses greater than 50% with inspiration. Pericardium/Pleural There is no evidence of pericardial effusion. Prior Study Comparison No significant change compared to prior study dated: 12/02/2020. Recommendations, Care & Conclusions No obvious valvular pathology seen on this study. Measurements 2D Linear Measurements IVSd: 0.97 0.6-0.9/0.6-1.0 cm LVIDd: 4.62 3.9-5.3/4.2-5.9 cm LVIDd Index: 2.47 2.4-3.2/2.2-3.1 cm/m2 LVIDs: 2.84 2.0-3.6 cm LVPWd: 1.01 0.7-1.1 cm Ao Root: 3.60 2.1-3.5 cm LA Diam: 4.00 2.7-3.8/3.0-4.0 cm LAIDs Index: 2.14 1.5-2.3 cm/m2 LV Mass: 196.71 67-162/88-224 g LV Mass Index: 105.19 43-95/49-115 g/m2 LVOT Diam: 2.20 3.0+(-)1.3 cm 2D Systolic Function EF 4C: 73.70 >55% EF 2C: 71.70 >55% EF BiP: 71.90 >55% Mitral Valve MV Pk E: 0.78 MV PK A: 0.75 MV Decel Time: 211.00 E/A: 1.00 E'Lateral: 6.74 E'Medial: 6.85 E/E' Med: 11.40 E/E' Lat: 11.60 PHT: 62.00 MVA PHT: 3.55 Decel [place]: 3.71 Aortic Valve AoV Pk Savage: 1.32 AoV Mn Savage: 0.87 AoV VTI: 0.31 AoV Pk Grad: 7.00 Aov Mn Grad: 4.00 KIKA Cont.VTI: 2.93 AI Pk Savage: 4.40 AI [place]: 1.84 LVOT LVOT Pk Savage: 1.01 LVOT Mn [place]: 0.69 LVOT VTI: 0.24 LVOT Pk Grad: 4.00 LVOT Mn Grad: 2.00 LVOT Diam: 2.20 LVOT Area: 3.80 Diastolic Function MV Pk E: 0.78 MV Pk A: 0.75 E/A: 1.00 E'Medial: 6.85 E/E' Med: 11.40 E' Laterial: 6.74 E/E' Lat: 11.60 Tricuspid Valve TR Pk [place]: 1.74 TR Pk Grad: 12.00 RA Press: 3.00 RVSP: 15.00 Great Vessels Aorta Ao Root-2D: 3.60 2.0-3.7 cm Ao Asc: 3.80 2.1-3.4 cm Pulmonary Valve PV Pk Savage: 0.96 Peak PV Grad: 4.00 Updated in Other Vendor System with Status of Final Klaus Moore MD electronically signed on 03/21/2023 8:10:22 AM with status of Final
--- NOTE | 2023-03-21 07:28 | PC.NURSE ---
pt dressed, wearing jacket asking where the exit is for check out. reports she doesn't know why she is here or what room she came from. redirected pt to room 22. she reports she called her to pick her up because she was ready to go home now. now at bedside. reports pt often gets confused d/t alzheimers. plan to place camera at pt bedside for safety. pt back into hospital stefanie now, cardiac leads in place. pt sitting up and eating breakfast.
--- NOTE | 2023-03-21 08:55 | MHC.CM.PN ---
Patient has Dementia; CM spoke with /HCP/Erlin @ [phone] and addressed SIMEON with him (Copy will be mailed to Erlin and the original will be placed on the chart). Patient lives in a house with her and she required no services nor DME AUD[employer]OV[employer]UAL LIBR[employer]IAN. Home/self care is the goal and CM has initiated and will follow for dc planning. PCP is Dr. Rodney Rice.
[2023-03-21] MEDS: Atorvastatin Calcium 40 MG TABLET PO (09:48)
[2023-03-21] MEDS: Donepezil HCl 10 MG TABLET PO (09:48)
[2023-03-21] MEDS: Aspirin Enteric Coated 81 MG TABLET.DR PO (09:48)
--- NOTE | 2023-03-21 10:10 | P.CONCA_ITS ---
History of Present Illness History of Present Illness Date of Service: 03/21/23 Chief complaint: Syncope Narrative: This is a cardiac consultation regarding syncope episode. Patient is well known to me and has a history of coronary disease, CABG and right bundle-branch block at baseline. She was seen few weeks back and she was actually doing fine. Current admissions because syncopal episode. It seems that she was shopping in [employer] and then all of a sudden, she noticed some vague discomfort in the stomach and she was feeling sick. After that, it seems that she was dizzy and momentary episode of passing out. However, no other symptoms like chest pains. After few seconds or so she came around and get back to normal self. Currently, she feels fine. Overall, possibly vagal event but not clear if there is anything else playing a role like Sandro arrhythmias. Review of Systems 2 Review of Systems: Yes all other systems are reviewed and are negative Constitutional: Constitutional: Reports as per HPI and Reports no additional constitutional complaints Eyes: Eyes: Reports as per HPI and Denies no additional eye complaints ENT: Denies system reviewed and no additional complaints, except as documented and Reports as per HPI Cardiovascular: Cardiovascular: Reports as per HPI, Reports no additional cardiovascular complaints, Denies acrocyanosis, Denies cool extremities, Denies chest pain, Denies leg edema, Reports lightheadedness, Denies palpitations and Denies dyspnea Respiratory: Respiratory: Reports as per HPI, Denies no additional respiratory complaints and Denies dyspnea Gastrointestinal: Gastrointestinal: Reports as per HPI and Denies no additional gastrointestinal complaints Genitourinary: Genitourinary: Reports as per HPI Musculoskeletal: Musculoskeletal: Reports no additional musculoskeletal complaints and Reports as per HPI Integumentary/Breasts: Skin/Breast: Reports system reviewed and no additional complaints, except as docu Neurologic: Reports system reviewed and no additional complaints, except as documented and Reports as per HPI Psychiatric: Psychiatric: Reports no additional psychiatric complaints and Reports as per HPI Endocrine: Endocrine: Reports no additional endocrine complaints, Reports as per HPI and Denies palpitations Hematologic/Lymphatic: Hematologic/Lymphatic: Reports no additional hematologic/lymphatic complaints and Reports as per HPI Allergic/Immunologic: Allergic/Immunologic: Reports no additional allergic/immunologic complaints and Reports as per HPI [facility] Past Medical History Medical History Stomal prolapse Crohn's disease Bilateral carotid artery stenosis History of hypertension Atherosclerotic cardiovascular disease Family History Family History Father Heart attack Mother No problems noted. Surgical History Surgical History Status post coronary artery bypass graft History of incisional hernia repair History of colostomy (~06/16/18) History of appendectomy History of cardiac catheterization (~03/16/19) Social History Social History Patient Tobacco Use Status: Never used Tobacco Smoked in Last 30 Days: No Use of substances other than those prescribed or required for medical reasons: No Advance Directives: No Advance Directives Information Provided: Yes Nutrition Risks: No Nutritional Risk service: No Meds Allergies Allergy/AdvReac Type Severity Reaction Status Date / Time No Known Allergies Allergy Verified 02/12/23 10:50 Active Medications: Current Medications Acetaminophen (Acetaminophen 325 Mg Tablet) 975 mg PO Q6H PRN PRN Reason: Pain, Mild (Pain Scale 1-3) Aspirin (Aspirin Enteric Coated 81 Mg Tablet.) 81 mg PO DAILY [facility] Last Admin: 03/21/23 09:48 Dose: 81 mg Atorvastatin Calcium (Atorvastatin Calcium 40 Mg Tablet) 40 mg PO DAILY [facility] Last Admin: 03/21/23 09:48 Dose: 40 mg Donepezil HCl (Donepezil Hcl 10 Mg Tablet) 10 mg PO DAILY [facility] Last Admin: 03/21/23 09:48 Dose: 10 mg Melatonin (Melatonin 3 Mg Tablet) 6 mg PO BEDTIME PRN PRN Reason: Insomnia Sodium Chloride (0.9 % Sodium Chloride Flush 3 Ml Syringe) 3 ml IVFLUSH QSHIFT [facility] Last Admin: 03/21/23 09:48 Dose: 3 ml Home Medications Medication Instructions Recorded Confirmed Last Taken Type aspirin 81 mg tablet,delayed 81 mg PO DAILY 05/02/20 03/20/23 Unknown History release atorvastatin 40 mg tablet 40 mg PO DAILY 05/02/20 03/20/23 Unknown History donepezil 5 mg tablet 10 mg PO DAILY 02/12/23 03/20/23 Unknown History mesalamine 0.375 gram 0.75 g PO DAILY 02/12/23 03/20/23 Unknown History capsule,extended release 24 hr Physical Exam 2 Vital Signs: Vital Signs: Last Vital Signs Temp 97.9 F 03/21/23 05:09 Pulse 63 03/21/23 09:46 Resp 15 03/21/23 09:46 BP 134/61 03/21/23 09:46 Pulse Ox 96 03/21/23 09:46 O2 Del Method Room Air 03/21/23 09:46 BMI result Body Mass Index 32.6 Const: General: comfortable and no acute distress O rientation/consciousness: patient oriented x3 HEENT: Other: Unremarkable Head: Yes normal to inspection Neck: Neck: Yes normal visual inspection Chest: Chest palpation & inspection: normal inspection of the chest Resp: Auscultation: clear to auscultation bilaterally Cardio: Palpation: normal PMI Heart sounds: S1 normal heart sound present, S2 normal heart sound present, no gallops, no murmurs and no rubs GI: Palpation (GI): Soft to palpation Back/Spine/Pelvis: Other: unremarkable Skin: General skin exam: no rashes or lesions noted Neuro: General: patient oriented x3 Extrem: General: Yes normal to inspection Psych: Mental Status: mental status grossly normal Objective Labs and Meds 03/20/23 16:02 03/20/23 16:02 Lab results: Laboratory Results - last 24 hr 03/20/23 03/20/23 03/20/23 15:55 16:02 20:45 WBC 13.3 H RBC 4.54 Hgb 12.4 Hct 39.2 MCV 86.3 MCH 27.3 MCHC 31.6 RDW 15.7 Plt Count 336 MPV 9.4 Immature Gran % (Auto) 0.4 Neut % (Auto) 87.3 H Lymph % (Auto) 6.2 L [place] % (Auto) 5.3 Eos % (Auto) 0.5 Baso % (Auto) 0.3 Lymph # (Auto) 0.8 L [place] # (Auto) 0.7 Eos # (Auto) 0.1 Baso # (Auto) 0.0 Abs Immat Gran (auto) 0.05 H Absolute Neuts (auto) 11.6 H Absolute Nucleated RBC 0.000 Nucleated RBC % (auto) 0.0 PT 13.4 H INR 1.1 D-Dimer High Sensitivty 472 Sodium 141 Potassium 4.0 Chloride 104 Carbon Dioxide 28 Anion Gap 13 BUN 11 Creatinine 0.81 Estim Creat Clear Calc 51.9 Estimated GFR > 60 Random Glucose 114 Calcium 9.6 Magnesium 1.9 Total Bilirubin 0.5 AST 15 ALT 11 Alkaline Phosphatase 138 H Troponin I High Sens < 2.7 < 2.7 Total Protein 7.7 Albumin 4.2 Lipase 22 Urine Color Yellow Urine Appearance Clear Urine pH 7.0 Ur Specific [place] <= 1.005 Urine Protein Negative Urine Glucose (UA) Negative Urine Ketones Negative Urine Blood Negative Urine Nitrite Negative Ur Leukocyte Esterase Negative 03/21/23 05:43 WBC RBC Hgb Hct MCV MCH MCHC RDW Plt Count MPV Immature Gran % (Auto) Neut % (Auto) Lymph % (Auto) [place] % (Auto) Eos % (Auto) Baso % (Auto) Lymph # (Auto) [place] # (Auto) Eos # (Auto) Baso # (Auto) Abs Immat Gran (auto) Absolute Neuts (auto) Absolute Nucleated RBC Nucleated RBC % (auto) PT INR D-Dimer High Sensitivty Sodium Potassium Chloride Carbon Dioxide Anion Gap BUN Creatinine Estim Creat Clear Calc Estimated GFR Random Glucose Calcium Magnesium Total Bilirubin AST ALT Alkaline Phosphatase Troponin I High Sens 4.1 D Total Protein Albumin Lipase Urine Color Urine Appearance Urine pH Ur Specific [place] Urine Protein Urine Glucose (UA) Urine Ketones Urine Blood Urine Nitrite Ur Leukocyte Esterase ECG Interpretation: EKG with sinus bradycardia 56/Min; NE prolongation to 232 millisecond; right bundle-branch block pattern. In the recent EKG in the clinic from last month, similar pattern but the NE interval was a bit shorter at 200 milliseconds. Imaging Radiologist's impression: Impressions Chest X-Ray 03/20/23 13:30 IMPRESSION: No evidence for acute disease in the chest. Head CT 03/20/23 18:00 IMPRESSION: No acute intracranial pathology. Generalized atrophy and nonspecific periventricular matter disease. Cervical Spine CT 03/20/23 18:01 IMPRESSION: Degenerative changes. No fracture or dislocation seen. Fleischner guidelines were followed. Abdomen/Pelvis CT 03/20/23 18:27 IMPRESSION: Severe left hydronephrosis and proximal ureteral dilatation increased from April 2018 left ureter appears dilated secondary to abnormal soft tissue left retroperitoneum. There are tethered loops of small and large bowel seen in this region similar to April 2018 exam and post infectious or inflammatory scarring over neoplasm is favored. Transverse loop colostomy. Mild diverticulosis. Large lower abdominal wall bulge/broad-based hernia with wide neck containing small bowel. No evidence of obstruction. Question endometrial fluid or thickening. Follow-up pelvic ultrasound recommended No significant abnormality. Fleischner guidelines were followed. Chest CTA 03/20/23 18:27 IMPRESSION: No evidence of pulmonary embolism. No acute findings in the chest. VTE: negative Assessment and Plan (1) Syncope: Qualifiers: Syncope type: vasovagal syncope Qualified Code(s): R55 - Syncope and collapse Status: Acute (2) RBBB: Status: Acute (3) Atherosclerotic cardiovascular disease: Status: Acute (4) Status post coronary artery bypass graft: Status: Acute Plan High sensitivity troponins are within range. Telemetry so far unremarkable. As the syncope started after some GI distress, a vagal episode might have played a role. However, she does have significant cardiac disease including history of bypass surgery as well as conduction system disease. Hence we can monitor on telemetry for the next day or so to ensure there is no significant bradyarrhythmia. If this is not seen, then potentially outpatient monitoring for the same. With regard to the hydronephrosis seen on CT scan, consider urology evaluation. Discussed with Dr. Tolentino. Procedures Date of Service Date of Service: 03/21/23
--- NOTE | 2023-03-21 12:35 | PC.NURSE ---
PT ERIC VEGA JR WOULD LIKE TO BE CONTACT R/T DISCHARGE PLANNING
--- NOTE | 2023-03-21 15:08 | P.PNIM_ITS ---
Subjective Subjective Date of Service: 03/21/23 Interval History: No acute issues overnight. Monitor remains sinus rhythm Review of Systems Denies chest pain Denies shortness of breath Denies nausea vomiting diarrhea Denies fever chills Physical Exam 2 Vital Signs: Vital Signs: Last Vital Signs Temp 97.1 F 03/21/23 14:00 Pulse 73 03/21/23 14:00 Resp 20 03/21/23 14:00 BP 151/73 H 03/21/23 14:00 Pulse Ox 94 03/21/23 14:00 O2 Del Method Room Air 03/21/23 14:00 BMI result Body Mass Index 32.6 Const: Other: Awake alert no acute distress Resp: Other: Clear to auscultation bilaterally no rales rhonchi or wheezes Cardio: Other: No S4; positive S1-S2; no S3 murmurs rubs or gallops Extrem: Other: No edema bilaterally Objective Data Active Medications Acetaminophen (Acetaminophen 325 Mg Tablet) 975 mg PO Q6H PRN PRN Reason: Pain, Mild (Pain Scale 1-3) Aspirin (Aspirin Enteric Coated 81 Mg Tablet.) 81 mg PO DAILY [facility] Last Admin: 03/21/23 09:48 Dose: 81 mg Documented By: WATSON Atorvastatin Calcium (Atorvastatin Calcium 40 Mg Tablet) 40 mg PO DAILY [facility] Last Admin: 03/21/23 09:48 Dose: 40 mg Documented By: WATSON Donepezil HCl (Donepezil Hcl 10 Mg Tablet) 10 mg PO DAILY [facility] Last Admin: 03/21/23 09:48 Dose: 10 mg Documented By: WATSON Melatonin (Melatonin 3 Mg Tablet) 6 mg PO BEDTIME PRN PRN Reason: Insomnia Sodium Chloride (0.9 % Sodium Chloride Flush 3 Ml Syringe) 3 ml IVFLUSH QSHIFT [facility] Last Admin: 03/21/23 09:48 Dose: 3 ml Documented By: WTASON Labs 03/20/23 16:02 03/20/23 16:02 Labs: Laboratory Results - last 24 hr 03/20/23 03/20/23 15:55 16:02 MCV 86.3 MCH 27.3 MCHC 31.6 RDW 15.7 Plt Count 336 MPV 9.4 Immature Gran % (Auto) 0.4 Neut % (Auto) 87.3 H Lymph % (Auto) 6.2 L [place] % (Auto) 5.3 Eos % (Auto) 0.5 Baso % (Auto) 0.3 Lymph # (Auto) 0.8 L [place] # (Auto) 0.7 Eos # (Auto) 0.1 Baso # (Auto) 0.0 Abs Immat Gran (auto) 0.05 H Absolute Neuts (auto) 11.6 H Absolute Nucleated RBC 0.000 Nucleated RBC % (auto) 0.0 PT 13.4 H INR 1.1 D-Dimer High Sensitivty 472 Anion Gap 13 Estim Creat Clear Calc 51.9 Estimated GFR > 60 Random Glucose 114 Calcium 9.6 Magnesium 1.9 Total Bilirubin 0.5 AST 15 ALT 11 Alkaline Phosphatase 138 H Total Protein 7.7 Albumin 4.2 Lipase 22 Urine Color Yellow Urine Appearance Clear Urine pH 7.0 Ur Specific [place] <= 1.005 Urine Protein Negative Urine Glucose (UA) Negative Urine Ketones Negative Urine Blood Negative Urine Nitrite Negative Ur Leukocyte Esterase Negative Assessment and Plan (1) Syncope: Status: Acute (2) Hydronephrosis: Status: Acute Plan Farhana Light 83 years old woman presents with near syncopal episode and grossly restore following episode of nausea. 1. Syncope -question vasovagal after episode of nausea -appreciate cardiology input -carotid/echo pending -re-evaluate in a.m. 2. Left-sided hydronephrosis -asymptomatic -urology consult 3. Dementia -Continue donepezil. DVT prophylaxis: SCDs. Code status: Full. Requires ongoing hospitalization to complete workup for syncope along with specialty consultation Quality Stroke Does the patient have a stroke diagnosis?: No VTE Prior VTE?: No VTE Risk Level:: Medical - moderate - high VTE Device Contraindication: N/A - Device Ordered VTE Drug Contraindication: Treatment Not Indicated
--- NOTE | 2023-03-21 17:26 | P.CNUR_ITS ---
History of Present Illness Consult details Consult date: 03/21/23 Narrative: CC: Left hydroureteronephrosis 83-year-old female admitted with loss of consciousness while out shopping Medical history significant for Crohn's disease status post colostomy Creatinine 0.81 WBC 13.3 Imaging - : Severe left hydronephrosis and left proximal ureteral dilatation. This is increased compared to 2019 exam. The left ureter is dilated down to an area where there is irregular soft tissue in the left retroperitoneum adjacent to the proximal sigmoid colon Asymptomatic Hydroureteronephrosis likely secondary to scarring from Crohn's disease. Creatinine stable. Progressive on imaging from 5 years ago No acute urologic issues May be followed as outpatient Review of Systems 2 Constitutional: Constitutional: Reports as per HPI and Reports no additional constitutional complaints Cardiovascular: Cardiovascular: Reports as per HPI and Reports no additional cardiovascular complaints Respiratory: Respiratory: Reports as per HPI and Reports no additional respiratory complaints Gastrointestinal: Gastrointestinal: Reports as per HPI and Reports no additional gastrointestinal complaints Genitourinary: Genitourinary: Reports as per HPI Musculoskeletal: Musculoskeletal: Reports no additional musculoskeletal complaints and Reports as per HPI Neurologic: Reports system reviewed and no additional complaints, except as documented and Reports as per HPI [facility] Past Medical History Medical History Stomal prolapse Crohn's disease Bilateral carotid artery stenosis History of hypertension Atherosclerotic cardiovascular disease Family History Family History Father Heart attack Mother No problems noted. Surgical History Surgical History Status post coronary artery bypass graft History of incisional hernia repair History of colostomy (~06/16/18) History of appendectomy History of cardiac catheterization (~03/16/19) Social History Social History Household Members: Spouse Housing: House Do you presently have visiting nurse or other home services: No Patient Tobacco Use Status: Never used Tobacco service: No Meds Allergies Allergy/AdvReac Type Severity Reaction Status Date / Time No Known Allergies Allergy Verified 02/12/23 10:50 Active Medications: Current Medications Acetaminophen (Acetaminophen 325 Mg Tablet) 975 mg PO Q6H PRN PRN Reason: Pain, Mild (Pain Scale 1-3) Aspirin (Aspirin Enteric Coated 81 Mg Tablet.) 81 mg PO DAILY [facility] Last Admin: 03/21/23 09:48 Dose: 81 mg Atorvastatin Calcium (Atorvastatin Calcium 40 Mg Tablet) 40 mg PO DAILY [facility] Last Admin: 03/21/23 09:48 Dose: 40 mg Donepezil HCl (Donepezil Hcl 10 Mg Tablet) 10 mg PO DAILY [facility] Last Admin: 03/21/23 09:48 Dose: 10 mg Melatonin (Melatonin 3 Mg Tablet) 6 mg PO BEDTIME PRN PRN Reason: Insomnia Sodium Chloride (0.9 % Sodium Chloride Flush 3 Ml Syringe) 3 ml IVFLUSH QSHIFT [facility] Last Admin: 03/21/23 15:39 Dose: 3 ml Home Medications Medication Instructions Recorded Confirmed Last Taken Type aspirin 81 mg tablet,delayed 81 mg PO DAILY 05/02/20 03/20/23 Unknown History release atorvastatin 40 mg tablet 40 mg PO DAILY 05/02/20 03/20/23 Unknown History donepezil 5 mg tablet 10 mg PO DAILY 02/12/23 03/20/23 Unknown History mesalamine 0.375 gram 0.75 g PO DAILY 02/12/23 03/20/23 Unknown History capsule,extended release 24 hr Physical Exam 2 Vital Signs: Vital Signs: Last Vital Signs Temp 97.1 F 03/21/23 15:34 Pulse 72 03/21/23 16:00 Resp 17 03/21/23 15:34 BP 124/68 03/21/23 16:00 Pulse Ox 98 03/21/23 15:34 O2 Del Method Room Air 03/21/23 15:34 BMI result Body Mass Index 32.6 Const: General: cooperative, healthy appearing, comfortable and no acute distress Orientation/consciousness: patient oriented x3 HEENT: Face and sinus: Yes normal facial exam Mouth: moist mucous membranes Neck: Neck: Yes normal visual inspection, Yes full ROM and Yes trachea midline Chest: Chest palpation & inspection: normal inspection of the chest Resp: Effort & Inspection: normal respiratory effort, able to speak in complete sentences and no respiratory distress GI: Inspection: Yes normal to inspection Back/Spine/Pelvis: Cervical Spine: normal cervical lordosis Thoracic/Lumbar Spine: thoracic and lumbar spine normal to inspection Skin: General skin exam: no rashes or lesions noted Neuro: General: patient oriented x3, tone normal and moves all extremities Extrem: General: Yes normal to inspection and Yes capillary refill normal Results Labs 03/20/23 16:02 03/20/23 16:02 Labs: Urine 03/20/23 Range/Units 15:55 Urine Color Yellow Urine Appearance Clear Urine pH 7.0 (5.0-9.0) Ur Specific [place] <= 1.005 (1.005-1.025) Urine Protein Negative (Neg-Trace) mg/dL Urine Glucose (UA) Negative (Negative) mg/dL All other labs normal. Assessment and Plan (1) Hydronephrosis: Status: Acute Plan Hydroureteronephrosis left side likely secondary to Crohn scarring at proximal colon Creatinine stable No acute urologic issues Procedures Date of Service Date of Service: 03/21/23
[2023-03-21] MEDS: Acetaminophen 325 MG TABLET 975 MG PO (18:21)
[2023-03-22 03:05] VITALS: BP 163/72; PULSE 56; RESP 20; TEMP 36.4; O2SAT 96
[2023-03-22 06:16] LABS: MANUAL DIFF FLAG NO
[2023-03-22 06:19] LABS: Basophils Percent Auto 0.5 % (0-2); Eosinophils Absolute Auto 0.2 X10*3/uL (0.0-0.4); Eosinophils Percent Auto 2.8 % (0-4); Hematocrit 34.8 % (37.0-47.0); Hemoglobin 11.2 g/dl (12.0-16.0); Imm Gran Abs Auto 0.03 X10*3/uL (0.00-0.03); Imm Gran Pct Auto 0.4 % (0.0-0.4); Lymphocytes Percent Auto 12.4 % (20-40); Mean Corpuscular HGB Conc 32.2 g/dl (31.0-35.0); Mean Corpuscular Hemoglobin 27.6 pg (27.0-33.0); Mean Corpuscular Volume 85.7 fL (80.0-98.0); Mean Platelet Volume 9.9 fL (9.4-12.3); Monocytes Absolute Auto 0.7 X10*3/uL (0.1-1.2); Monocytes Percent Auto 8.9 % (2-11); Neutrophils Absolute Auto 5.9 x10*3/uL (2.0-8.3); Platelet Count 286 X10*3/uL (160-400); Red Blood Count 4.06 X10*6/uL (4.20-5.50); Red Cell Distribution Width 15.7 % (11.0-16.0); White Blood Count 7.9 X10*3/uL (4.8-10.8)
[2023-03-22 06:58] LABS: Alanine Aminotransferase 11 U/L (0-31); Albumin Level 3.8 g/dL (3.5-5.0); Alkaline Phosphatase 116 U/L (39-117); Anion Gap 14 (12-20); Aspartate Amino Transferase 24 U/L (5-31); Bilirubin Total 0.5 mg/dL (0.0-1.0); Blood Urea Nitrogen 11 mg/dL (9-16); Carbon Dioxide 24 mmol/L (22-29); Chloride 106 mmol/L (96-108); Creatinine Clr Calc Pharmacy 59.3; Estimated Glomerular Filt Rate > 60; Glucose Fasting 94 mg/dL (60-99); Potassium 3.4 mmol/L (3.3-5.1); Sodium 141 mmol/L (135-145); Total Protein 6.8 g/dL (6.5-8.0)
[2023-03-22 07:42] VITALS: BP 149/70; PULSE 62; RESP 17; TEMP 37; O2SAT 95
[2023-03-22 07:44] VITALS: BP 149/70; PULSE 62
[2023-03-22 07:45] VITALS: BP 145/73; BP 152/73; PULSE 79; PULSE 96
[2023-03-22] MEDS: Donepezil HCl 10 MG TABLET PO (08:55)
[2023-03-22] MEDS: Atorvastatin Calcium 40 MG TABLET PO (08:56)
[2023-03-22] MEDS: 0.9 % Sodium Chloride Flush 3 ML SYRINGE IVFLUSH (08:56)
[2023-03-22] MEDS: Aspirin Enteric Coated 81 MG TABLET.DR PO (08:56)
--- NOTE | 2023-03-22 11:20 | P.PNCA_ITS ---
Subjective Subjective Date of Service: 03/22/23 Interval history: She feels okay. No new complaints. No further dizziness or syncope. Review of Systems Review of Systems Yes all other systems are reviewed and are negative Constitutional: Reports as per HPI and Reports no additional constitutional complaints Eyes: Reports as per HPI and Denies no additional eye complaints Denies system reviewed and no additional complaints, except as documented and Reports as per HPI Cardiovascular: Reports as per HPI, Reports no additional cardiovascular complaints, Denies acrocyanosis, Denies cool extremities, Denies chest pain, Denies leg edema, Reports lightheadedness, Denies palpitations and Denies dyspnea Respiratory: Reports as per HPI, Denies no additional respiratory complaints and Denies dyspnea Gastrointestinal: Reports as per HPI and Denies no additional gastrointestinal complaints Musculoskeletal: Reports no additional musculoskeletal complaints and Reports as per HPI Skin/Breast: Reports system reviewed and no additional complaints, except as docu Reports system reviewed and no additional complaints, except as documented and Reports as per HPI Psychiatric: Reports no additional psychiatric complaints and Reports as per HPI Endocrine: Reports no additional endocrine complaints, Reports as per HPI and Denies palpitations Hematologic/Lymphatic: Reports no additional hematologic/lymphatic complaints and Reports as per HPI Allergic/Immunologic: Reports no additional allergic/immunologic complaints and Reports as per HPI Physical Exam Vital Signs: Last Vital Signs Temp 98.6 F 03/22/23 07:42 Pulse 96 03/22/23 07:45 Resp 17 03/22/23 07:42 BP 152/73 H 03/22/23 07:45 Pulse Ox 95 03/22/23 07:42 O2 Del Method Room Air 03/22/23 07:42 BMI result Body Mass Index 32.6 Const General: comfortable and no acute distress Orientation/consciousness: patient oriented x3 HEENT Other: Unremarkable Head: Yes normal to inspection Neck Neck: Yes normal visual inspection Chest Chest palpation & inspection: normal inspection of the chest Resp Auscultation: clear to auscultation bilaterally Cardio Palpation: normal PMI Heart sounds: S1 normal heart sound present, S2 normal heart sound present, no gallops, no murmurs and no rubs GI Palpation (GI): Soft to palpation Back/Spine/Pelvis Other: unremarkable Skin General skin exam: no rashes or lesions noted Neuro General: patient oriented x3 Extrem General: Yes normal to inspection Psych Mental Status: mental status grossly normal Objective Labs and Meds 03/22/23 05:47 03/22/23 05:47 Lab results: Laboratory Results - last 24 hr 03/22/23 05:47 WBC 7.9 RBC 4.06 L Hgb 11.2 L Hct 34.8 L MCV 85.7 MCH 27.6 MCHC 32.2 RDW 15.7 Plt Count 286 MPV 9.9 Immature Gran % (Auto) 0.4 Neut % (Auto) 75.0 H Lymph % (Auto) 12.4 L [place] % (Auto) 8.9 Eos % (Auto) 2.8 Baso % (Auto) 0.5 Lymph # (Auto) 1.0 L [place] # (Auto) 0.7 Eos # (Auto) 0.2 Baso # (Auto) 0.0 Abs Immat Gran (auto) 0.03 Absolute Neuts (auto) 5.9 Absolute Nucleated RBC 0.000 Nucleated RBC % (auto) 0.0 Sodium 141 Potassium 3.4 Chloride 106 Carbon Dioxide 24 Anion Gap 14 BUN 11 Creatinine 0.71 Estim Creat Clear Calc 59.3 Estimated GFR > 60 Fasting Glucose 94 Calcium 9.0 D Total Bilirubin 0.5 AST 24 ALT 11 Alkaline Phosphatase 116 Total Protein 6.8 Albumin 3.8 Imaging Radiologist's impression: Impressions Carotid Doppler Study 03/21/23 08:20 IMPRESSION: 1. RIGHT: Minimal, non-hemodynamically significant stenosis of the proximal right internal carotid artery corresponding to a 0-49% stenosis by velocity criteria. 2. LEFT: Minimal, non-hemodynamically significant stenosis of the proximal left internal carotid artery corresponding to a 0-49% stenosis by velocity criteria. Progress Note: A&P Assessment and plan (1) Syncope: Status: Acute (2) RBBB: Status: Acute (3) Atherosclerotic cardiovascular disease: Status: Acute (4) Status post coronary artery bypass graft: Status: Acute Plan High sensitivity troponins are within range. Telemetry unremarkable. As the syncope started after some GI distress, a vagal episode might have played a role. No further cardiac workup as an inpatient. Discharge planning. Can follow up in clinic. Discussed with Dr. Tolentino. Time Spent With Patient Time: Total time managing care of this patient today ____ minutes. Progress Note: Quality Stroke Does the patient have a stroke diagnosis?: No Procedures Date of Service Date of Service: 03/22/23
[2023-03-22 12:00] VITALS: BP 132/70; PULSE 63; RESP 16; TEMP 37; O2SAT 94
--- NOTE | 2023-03-22 12:46 | MHC.CM.PN ---
[facility] PT WILL BE MEDICALLY CLEARED HOME SELF CARE W/ OUTPT FOLLOW UP W/CARDIOLOGY AND FOR TRANSPORT.
--- NOTE | 2023-03-22 12:52 | P.DS_ITS ---
DS: Providers Provider Date of Service: 03/22/23 Date of admission: 03/20/23 21:42 Primary care physician: Rodney Rice MD Consults: 03/20/23 21:59 Consult to Cardiology Routine Consulting Provider: [facility] Cardi[facility] Services Reason for consultation: Syncope Has provider been notified: Yes 03/21/23 15:07 Consult to Urology Routine Consulting Provider: Manav Eddy Reason for consultation: Hydronephrosis Has provider been notified: No DS: Diagnosis Discharge Diagnosis (1) Syncope: Status: Acute (2) RBBB: Status: Acute (3) Atherosclerotic cardiovascular disease: Status: Acute (4) Status post coronary artery bypass graft: Status: Acute DS: Summary Hospital Course Hospital Course: 83 years old woman with past medical history significant for dementia, Crohn's disease status post colostomy, CAD status post CABG and hyperlipidemia was brought to the emergency department after she had an event of loss of consciousness today while at the grocery store. Her was with her and witnessed the event. He stated that she recovered consciousness pretty quickly returned to her baseline. The patient stated that she felt lightheaded and nauseous (no vomiting) before passing out. She has not noted increased output out of her colostomy. She denied palpitations, chest pain or shortness on breath. She also denies headache, focal weakness, gait or speech difficulty. She denied any cardiopulmonary, gastrointestinal or genitourinary symptoms. There is no history of alcohol abuse, tobacco smoking or illicit drug use. She does not have history of arrhythmias and is not taking diuretics. In the ED, she was found to have stable vital signs. Her last blood pressure is 107/57. Blood workup is remarkable for leukocytosis, 13.3. There are no electrolyte imbalances. Liver and renal function are normal. Troponin is negative x2. EKG showed right bundle branch block, sinus bradycardia 56 beats per minutes and first-degree AV block. Currently her cardiac monitoring is showing a heart rate of 80 bpm. 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 Hospital Course Patient admitted to telemetry where monitor failed to demonstrate any acute dysrhythmias. She was seen in consultation this a.m. by Cardiology who felt this was more a vagal episode in nature. With regards to the hydronephrosis, she was seen in consultation by Dr. Eddy who felt this was related to her Crohn's and no intervention was indicated. This point in time she is medically acceptable for discharge Time Attestation Discharge coordination time: Greater than 30 minutes Quality: Safe Use of Opioids Does Pt have an Active Cancer Diagnosis on the Problem List?: No Quality: Stroke Does the patient have a stroke diagnosis?: No Physical Exam Vital Signs: Vital Signs: Last Vital Signs Temp 98.6 F 03/22/23 12:00 Pulse 63 03/22/23 12:00 Resp 16 03/22/23 12:00 BP 132/70 03/22/23 12:00 Pulse Ox 94 03/22/23 12:00 O2 Del Method Room Air 03/22/23 12:00 BMI result Body Mass Index 32.6 Const: Other: Awake alert no acute distress Resp: Other: Clear to auscultation bilaterally no rales rhonchi or wheezes Cardio: Other: No S4; positive S1-S2; no S3 murmurs rubs or gallops Extrem: Other: No edema bilaterally DS: Data Data Completed and Pending Labs on day of discharge: Laboratory Results - last 24 hr 03/22/23 05:47 WBC 7.9 RBC 4.06 L Hgb 11.2 L Hct 34.8 L MCV 85.7 MCH 27.6 MCHC 32.2 RDW 15.7 Plt Count 286 MPV 9.9 Immature Gran % (Auto) 0.4 Neut % (Auto) 75.0 H Lymph % (Auto) 12.4 L [place] % (Auto) 8.9 Eos % (Auto) 2.8 Baso % (Auto) 0.5 Lymph # (Auto) 1.0 L [place] # (Auto) 0.7 Eos # (Auto) 0.2 Baso # (Auto) 0.0 Abs Immat Gran (auto) 0.03 Absolute Neuts (auto) 5.9 Absolute Nucleated RBC 0.000 Nucleated RBC % (auto) 0.0 Sodium 141 Potassium 3.4 Chloride 106 Carbon Dioxide 24 Anion Gap 14 BUN 11 Creatinine 0.71 Estim Creat Clear Calc 59.3 Estimated GFR > 60 Fasting Glucose 94 Calcium 9.0 D Total Bilirubin 0.5 AST 24 ALT 11 Alkaline Phosphatase 116 Total Protein 6.8 Albumin 3.8 Discharge Plan Discharge Anticipated Discharge Date/Time: 03/22/23 12:48 Patient Disposition: Home, Self-Care Discharge Diagnosis: Syncope Referrals: Rodney Rice MD [Primary Care Provider] - 1 Week Discharge Medications: Continued atorvastatin 40 mg tablet 40 mg PO DAILY aspirin 81 mg tablet,delayed release (DR/EC) 81 mg PO DAILY mesalamine 0.375 gram capsule,extended release 24hr 0.75 g PO DAILY donepezil 5 mg tablet 10 mg PO DAILY Discharge Orders: Discharge Order (Routine); Ordered 03/22/23 Ordered By: Juan Tolentino Diet: Advance to usual diet Activity on Discharge: As tolerated Stand Alone Forms: Patient Portal Discharge page Care Plan Goals: Continue all medicines as taken prior to hospital Health Concerns: Follow-up with PCP and Cardiology as scheduled Plan of Treatment: No changes have been made to your medicines Assessment: See discharge summary
== END 2023-03-22 14:15 | disposition home or self-care (01) ==
LOC: HO.ED 16:32 → HO.EDOVER 21:57 → HO.IMC 03-21 13:06
PROVIDERS: Physician Assistant; Admitting Provider Internal Medicine; Emergency Provider Emergency Medicine; PCP Family Medicine; Visit Provider Hospitalist
DX: R55 Syncope and collapse (principal); I45.10 Unspecified right bundle-branch block; N13.30 Unspecified hydronephrosis; I65.23 Occlusion and stenosis of bilateral carotid arteries; I25.10 Atherosclerotic heart disease of native coronary artery without angina pectoris; I10 Essential (primary) hypertension; K50.90 Crohn's disease, unspecified, without complications; M54.2 Cervicalgia; R06.02 Shortness of breath; E78.5 Hyperlipidemia, unspecified; D72.829 Elevated white blood cell count, unspecified; F03.90 Unspecified dementia, unspecified severity, without behavioral disturbance, psychotic disturbance, mood disturbance, and anxiety; Z95.1 Presence of aortocoronary bypass graft; Z93.3 Colostomy status
CPT/HCPCS: 36415; 70450; 71045; 71275; 72125; 74177; 80053; 81003; 83690; 83735; 84484; 85025; 85379; 85610; 93005; 93306; 93356; 93880; 96360; 99222; 99285; Q9957; Q9967

== ENCOUNTER → 2023-03-20 12:45 | Outpatient (BNV) | payer MEDICARE, SELFPAY | PROVIDERS: Emergency Provider Emergency Medicine; PCP Family Medicine; Visit Provider Internal Medicine | DX: I44.0 Atrioventricular block, first degree (principal); I44.4 Left anterior fascicular block; I45.10 Unspecified right bundle-branch block | CPT/HCPCS: 93010 ==

== ENCOUNTER 2023-03-20 21:42 | Outpatient (BNV) | payer MEDICARE, SELFPAY | END 2023-03-21 07:00 | PROVIDERS: Admitting Provider Internal Medicine; Emergency Provider Emergency Medicine; PCP Family Medicine; Visit Provider Internal Medicine | DX: I35.8 Other nonrheumatic aortic valve disorders (principal) | CPT/HCPCS: 93306 ==

== ENCOUNTER → 2023-03-20 21:42 | Outpatient (BNV) | payer MEDICARE, SELFPAY | PROVIDERS: Admitting Provider Internal Medicine; Emergency Provider Emergency Medicine; PCP Family Medicine; Visit Provider Urology | DX: N13.30 Unspecified hydronephrosis (principal) | CPT/HCPCS: 99222 ==

== ENCOUNTER → 2023-03-20 21:42 | Outpatient (BNV) | payer MEDICARE, SELFPAY | PROVIDERS: Admitting Provider Internal Medicine; Emergency Provider Emergency Medicine; PCP Family Medicine; Visit Provider Internal Medicine | DX: K50.90 Crohn's disease, unspecified, without complications (principal); R55 Syncope and collapse; N13.30 Unspecified hydronephrosis | CPT/HCPCS: 99222; 99233; 99239 ==

== ENCOUNTER → 2023-03-20 21:42 | Outpatient (BNV) | payer MEDICARE, SELFPAY | PROVIDERS: Admitting Provider Internal Medicine; Emergency Provider Emergency Medicine; PCP Family Medicine; Visit Provider Internal Medicine | DX: R55 Syncope and collapse (principal); I45.10 Unspecified right bundle-branch block; I25.10 Atherosclerotic heart disease of native coronary artery without angina pectoris; Z95.1 Presence of aortocoronary bypass graft | CPT/HCPCS: 99222; 99232 ==

== ENCOUNTER → 2023-04-02 11:22 | Outpatient (REF) | payer MEDICARE, SELFPAY ==
--- NOTE | 2023-04-02 11:25 | HM_ITS ---
Conclusion: 1. Patient was monitored for total period of 7 days 2. Baseline was normal sinus rhythm with average heart of 58 beats per minute 3. No significant pauses noted but frequent sinus bradycardia noted with 60.5% of the time heart rate below 60 beats per minute 4. Baseline bundle-branch block noted 5. Occasional PACs noted with no significant tachyarrhythmias 6. No patient reported events MTDD
== END ==
LOC: HO.CARD 11:22
PROVIDERS: PCP Family Medicine; Visit Provider Internal Medicine
DX: R55 Syncope and collapse (principal); I45.10 Unspecified right bundle-branch block
CPT/HCPCS: 93242

== ENCOUNTER → 2023-04-02 11:25 | Outpatient (BNV) | payer MEDICARE, SELFPAY | PROVIDERS: PCP Family Medicine; Visit Provider Internal Medicine Cardiovascular Disease | DX: R00.1 Bradycardia, unspecified (principal) | CPT/HCPCS: 93244 ==

== ENCOUNTER 2023-04-18 09:30 | Outpatient (AMB) | payer MEDICARE, SELFPAY ==
[2023-04-18 09:33] VITALS: BP 130/74; PULSE 71; BMI 31.8
--- NOTE | 2023-04-18 09:33 | A.OFFVIS_ITS ---
Intake Vital Signs 04/18/23 09:33 Height 5 ft 3 in Weight 179 lb 7.3 oz BMI 31.8 BP 130/74 Blood Pressure Location Lt brachial Position Sitting Pulse 71 Pulse Source Pulse Oximeter Intake Visit Reasons: f/u after testing Hood Maker Required: No Cooker Loader: Cooker Loader Present Allergies No Known Allergies Allergy (Verified 04/18/23 09:36) Medication List - Last Reconciled 04/18/23 by Fabienne Villanueva NP-C aspirin 81 mg PO DAILY atorvastatin 40 mg PO DAILY donepezil 10 mg PO DAILY mesalamine ER 0.75 grams PO DAILY HPI f/u after testing HPI Details Farhana is an 83-year-old female with past medical of hypertension, hyperlipidemia, NSTEMI, coronary artery bypass grafting, right bundle branch block, carotid stenosis who was recently in the grocery store and had a syncopal event. She was admitted to [facility] without significant contributing findings. An outpatient Holter monitor was done and she now presents for follow-up. Today she reports that she has been doing well since her hospital discharge last month. She has not had any recurrent syncopal events. She states that her event occurred in the setting of extreme anxiety, she could not find her in the grocery store. She says she sat down then became nauseous and passed out. She has not had syncopal events in the past. She does have issues with anxiety and is seeking treatment. No chest discomfort at rest or with activity. No shortness of breath, palpitations, lightheadedness, PND, orthopnea or edema. Taking all meds as directed. is present. He describes that they are together 03/09 and they have been 67 years. [facility] Medical History (Updated 04/18/23 @ 10:46 by TAINA Matias) Atherosclerotic cardiovascular disease Hydronephrosis RBBB Stomal prolapse Crohn's disease Bilateral carotid artery stenosis History of hypertension Surgical History (Updated 04/18/23 @ 10:46 by TAINA Matias) Status post coronary artery bypass graft History of incisional hernia repair History of colostomy (~06/16/18) History of appendectomy History of cardiac catheterization (~03/16/19) Family History Father Heart attack Mother No problems noted. Social History Household Members: Spouse Housing: House Do you presently have visiting nurse or other home services: No Patient Tobacco Use Status: Never used Tobacco service: No Review of Systems Const Details: anxiety All systems reviewed & are unremarkable except as noted in HPI and below ENT Denies dizziness Card Denies chest pain, Denies chest pain at rest, Denies chest pain with activity, Denies rapid heart rate, Denies pedal edema, Denies edema, Denies leg edema, Denies lightheadedness, Denies palpitations, Denies dyspnea, Denies dyspnea on exertion and Denies orthopnea Resp Denies cough, Denies dyspnea and Denies dyspnea on exertion GI Denies hematochezia and Denies change in stool character Musc Denies abnormal gait, Denies limited range of motion, Denies muscle cramps, Denies muscle weakness, Denies numbness, Denies radiating pain into limb, Denies stiffness and Denies tingling Neuro Denies abnormal gait, Denies dizziness, Denies numbness and Denies tingling Endo Denies palpitations Physical Exam Vital Signs: Last Vital Signs Pulse 71 04/18/23 09:33 BP 130/74 04/18/23 09:33 BMI result Body Mass Index 31.8 Const General: cooperative, healthy appearing, comfortable and no acute distress Orientation/consciousness: patient oriented x3 Neck Neck: Yes normal visual inspection and Yes no JVD Resp Effort & Inspection: normal respiratory effort Auscultation: clear to auscultation bilaterally, no crackles, no rales, no rhonchi and no wheezes Cardio Jugular venous distension: no JVD Rate: regular rate Rhythm: regular rhythm Heart sounds: S1 normal heart sound present, S2 normal heart sound present, no murmurs and no rubs Neuro General: patient oriented x3 Extrem General: Yes normal to inspection and No no pedal edema Psych Appearance: grossly normal Mental Status: mental status grossly normal Speech and movement: Normal speech and movement present Assessment & Plan Assessment & Plan (1) Syncope: Code(s): R55 - Syncope and collapse Qualifiers: Syncope type: vasovagal syncope Qualified Code(s): R55 - Syncope and collapse Plan: Recent syncopal event in the grocery store. Patient describes having extreme anxiety then developing nausea and having syncope. Inpatient testing showed no contributing findings. She was thought to have a vagal event. Echocardiogram showed EF 65-70%, no valve abnormalities and no regional wall motion abnormalities. An outpatient Holter monitor done on 04/02/2023 for 7 days shows sinus rhythm with average heart rate 58, 60.5% of time heart rate less than 60, occasional PACs. Today she reports no recurrent syncopal events. She does report high anxiety and is getting help for this. Reviewed benefits of good hydration, recognizing symptoms and sitting/lying down if she ever felt recurrent symptoms. No further testing needed at this time. Patient will call us if she has any recurrent events. Cardiology office visit 6 months, sooner if needed (2) Atherosclerotic cardiovascular disease: Code(s): I25.10 - Atherosclerotic heart disease of [place] coronary artery without angina pectoris Plan: History of CAD, NSTEMI 2019 with cardiac catheterization showing two-vessel CAD, lad and RCA. She underwent coronary artery bypass grafting. Her condition has been stable since that time. Recent echocardiogram showing normal EF and no regional wall motion abnormalities. She denies any anginal sounding symptoms. Continue aspirin indefinitely. Continue atovastatin with ideal LDL goal less than 70. He tells me labs are done by her he, Dr. Rice. (3) Status post coronary artery bypass graft: Code(s): Z95.1 - Presence of aortocoronary bypass graft Plan: As above (4) RBBB: Code(s): I45.10 - Unspecified right bundle-branch block Plan: Chronic finding on EKG, no specific treatment required (5) History of hypertension: Code(s): Z86.79 - Personal history of other diseases of the circulatory system Plan: Well controlled at this time. No medication changes made. (6) Hospital discharge follow-up: Code(s): Z09 - Encounter for follow-up examination after completed treatment for conditions other than malignant neoplasm Plan: As above. Discharge summary reviewed Plan Time spent on chart documentation, interview, assessment Coding Level of Care Code Est Pt Level 4 (67552) Diagnoses Vasovagal syncope R55 Syncope type: vasovagal syncope Atherosclerotic cardiovascular disease I25.10 Status post coronary artery bypass graft Z95.1 RBBB I45.10 History of hypertension Z86.79 Hospital discharge follow-up Z09 Time Spent (min) 28
== END 2023-04-18 09:55 | disposition home or self-care (01) ==
PROVIDERS: PCP Family Medicine; Visit Provider Nurse Practitioner Family
DX: I25.10 Atherosclerotic heart disease of native coronary artery without angina pectoris (principal); Z95.1 Presence of aortocoronary bypass graft; I45.10 Unspecified right bundle-branch block; R55 Syncope and collapse; Z86.79 Personal history of other diseases of the circulatory system; Z09 Encounter for follow-up examination after completed treatment for conditions other than malignant neoplasm
CPT/HCPCS: 99214

== ENCOUNTER → 2023-04-18 09:30 | Outpatient (BNVA) | payer MEDICARE, SELFPAY | PROVIDERS: PCP Family Medicine; Visit Provider Nurse Practitioner Family | DX: Z09 Encounter for follow-up examination after completed treatment for conditions other than malignant neoplasm (principal); R55 Syncope and collapse; I25.10 Atherosclerotic heart disease of native coronary artery without angina pectoris; I45.10 Unspecified right bundle-branch block; Z95.1 Presence of aortocoronary bypass graft; Z86.79 Personal history of other diseases of the circulatory system | CPT/HCPCS: 99212 ==

== ENCOUNTER 2023-05-01 15:50 | Outpatient (REF) | payer MEDICARE, SELFPAY | END 2023-05-01 15:51 | disposition home or self-care (01) | LOC: HO.SH 15:50 | PROVIDERS: PCP Family Medicine; Visit Provider Family Medicine | DX: Z01.118 Encounter for examination of ears and hearing with other abnormal findings (principal); H90.3 Sensorineural hearing loss, bilateral | CPT/HCPCS: 92557 ==

== ENCOUNTER 2023-10-24 10:07 | Outpatient (AMB) | payer MEDICARE, SELFPAY ==
[2023-10-24 10:17] VITALS: BP 130/60; PULSE 60; BMI 29.6
--- NOTE | 2023-10-24 10:17 | MHC.OFFVIS ---
Vital Signs 10/24/23 10:17 Height 5 ft 3 in Weight 167 lb 1.766 oz BMI 29.6 BP 130/60 Blood Pressure Location Lt brachial Position Sitting Pulse 60 Pulse Source Pulse Oximeter Intake Visit Reasons: 6 month follow-up Boat Oar Maker Required: No Accompanied by: Significant Other Allergies No Known Allergies Allergy (Verified 04/18/23 09:36) Medication List - Last Reconciled 10/24/23 by Klaus Moore MD aspirin 81 mg PO DAILY atorvastatin 40 mg PO DAILY donepezil 10 mg PO DAILY mesalamine ER 0.75 grams PO DAILY HPI Comments Details: Farhana returns for follow-up regarding coronary disease. After admission for NSTEMI in 2019, she underwent cardiac catheterization showing 2 vessel CAD including LAD and RCA. Subsequently, underwent coronary artery bypass surgery. Since last seen, she states she is actually doing quite good. No complaints like angina or shortness of breath or in fact anything cardiac sounding. Getting along fine. [facility] Medical History (Updated 04/18/23 @ 10:46 by Fabienne Villanueva NP-C) Atherosclerotic cardiovascular disease Hydronephrosis RBBB Stomal prolapse Crohn's disease Bilateral carotid artery stenosis History of hypertension Surgical History Status post coronary artery bypass graft History of incisional hernia repair History of colostomy (~06/16/18) History of appendectomy History of cardiac catheterization (~03/16/19) Family History Father Heart attack Mother No problems noted. Social History Household Members: Spouse Housing: House Do you presently have visiting nurse or other home services: No Patient Tobacco Use Status: Never used Tobacco service: No Review of Systems Const Denies chills, Denies fatigue, Denies fever(s), Denies frequent falls, Denies weakness, Denies weight gain and Denies weight loss ENT Denies dizziness Card Denies chest pain, Denies leg edema, Denies lightheadedness, Denies palpitations, Denies dyspnea and Denies dyspnea on exertion Resp Denies cough, Denies dyspnea and Denies dyspnea on exertion GI Denies hematochezia Musc Denies abnormal gait, Denies muscle weakness, Denies numbness, Denies radiating pain into limb and Denies tingling Neuro Denies abnormal gait, Denies dizziness, Denies frequent falls, Denies numbness, Denies tingling and Denies weakness Endo Denies fatigue and Denies palpitations Physical Exam Vital Signs: Last Vital Signs Pulse 60 10/24/23 10:17 BP 130/60 10/24/23 10:17 BMI result Body Mass Index 29.6 Const General: comfortable and no acute distress Orientation/consciousness: patient oriented x3 HEENT Other: Unremarkable Head: Yes normal to inspection Neck Neck: Yes normal visual inspection Chest Chest palpation & inspection: normal inspection of the chest Resp Auscultation: clear to auscultation bilaterally Cardio Palpation: normal PMI Heart sounds: S1 normal heart sound present, S2 normal heart sound present, no gallops, no murmurs and no rubs GI Palpation (GI): Soft to palpation Back/Spine/Pelvis Other: unremarkable Skin General skin exam: no rashes or lesions noted Neuro General: patient oriented x3 Extrem General: Yes normal to inspection Psych Mental Status: mental status grossly normal Assessment & Plan Assessment & Plan (1) Atherosclerotic cardiovascular disease: Code(s): I25.10 - Atherosclerotic heart disease of [place] coronary artery without angina pectoris Category: Medical Plan: s/p CABG. Stable. Continue aspirin and statins. Last LDL 51 mg/dL. (2) RBBB: Code(s): I45.10 - Unspecified right bundle-branch block Category: Medical Plan: Can be followed on EKGs. By last EKG from March, underlying sinus rhythm with conduction system disease in the form of GA prolongation and right bundle-branch block. Can be followed up periodically. (3) Atrial arrhythmia: Code(s): I49.8 - Other specified cardiac arrhythmias Category: Medical Plan: Previously noted to have high burden of supraventricular ectopy on Holter. Has been on beta-blockers but not anymore. Had some side effects. Also with conduction system disease, may keep off. Plan Discussed with significant other. Coding Level of Care Code Est Pt Level 3 (17622) Diagnoses Atherosclerotic cardiovascular disease I25.10 RBBB I45.10 Atrial arrhythmia I49.8
== END 2023-10-24 10:34 | disposition home or self-care (01) ==
PROVIDERS: PCP Family Medicine; Visit Provider Internal Medicine
DX: I25.10 Atherosclerotic heart disease of native coronary artery without angina pectoris (principal); I45.10 Unspecified right bundle-branch block; I49.8 Other specified cardiac arrhythmias
CPT/HCPCS: 99213

== ENCOUNTER → 2023-10-24 10:07 | Outpatient (BNVA) | payer MEDICARE, SELFPAY | PROVIDERS: PCP Family Medicine; Visit Provider Internal Medicine | DX: I25.10 Atherosclerotic heart disease of native coronary artery without angina pectoris (principal); I45.10 Unspecified right bundle-branch block; I49.8 Other specified cardiac arrhythmias | CPT/HCPCS: 99212 ==

== ENCOUNTER 2024-02-11 11:41 | Emergency (ER) | payer MEDICARE, SELFPAY ==
[2024-02-11] VITALS (15 sets, daily range): BP systolic 93–165; BP diastolic 45–73; PULSE 55–77; RESP 14–18; TEMP 36.3–36.8; O2SAT 97–99; BMI 26.3
--- NOTE | ~2024-02-11 | XR_ITS ---
EXAMINATION: XR CHEST CLINICAL INFORMATION: syncope COMPARISON: CTA chest TECHNIQUE: Frontal view of the chest was obtained. FINDINGS: The lungs are fairly well-expanded and clear. The heart size and pulmonary vascularity is normal. There are median sternotomy sutures and mediastinal rosa from previous intervention. No gross bony abnormality seen. XR/XR chest 1V IMPRESSION: Unremarkable chest exam. Electronically signed by: Tato Dillard MD 02/11/2024 01:20 PM EST
--- NOTE | 2024-02-11 11:49 | ED.WEAKNESS ---
HPI - Weakness General Chief complaint: Syncope Stated complaint: ILL,SYNCOPE,RECENT VIRUS IN HOME PER EMS Time Seen by Provider: 02/11/24 11:48 Source: patient, EMS and old records reviewed Mode of arrival: EMS Limitations: altered mental status (cognitive impairment) History of Present Illness ED Provider: CARLOS HPI Narrative: 84 yo female with PMH of cognitive impairment, HLD, CAD s/p CABG, Crohns ds sp colostomy here with c/o not feeling well this AM then had witnessed syncopal event by the while sitting in a chair. She reports no pain, no head trauma was reported she is back to baseline. She admits prior to episode she didn't feel well. She has no CP/SOB. No reported blood in her ostomy. She states she thinks she is better. EMS was told by he had the norovirus but patient just has nausea. No other history provided. 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) Duration: improved Location: generalized Migration: none Severity: moderate Relieving factors: rest Exacerbating factors: none Context: recent illness Associated symptoms: denies other symptoms Related Data Home Medications ?Medication ?Instructions ?Recorded ?Confirmed aspirin 81 mg tablet,delayed 81 mg PO DAILY 05/02/20 10/24/23 release atorvastatin 40 mg tablet 40 mg PO DAILY 05/02/20 10/24/23 donepezil 5 mg tablet 10 mg PO DAILY 02/12/23 10/24/23 mesalamine 0.375 gram 0.75 g PO DAILY 02/12/23 10/24/23 capsule,extended release 24 hr Allergies Allergy/AdvReac Type Severity Reaction Status Date / Time No Known Allergies Allergy Verified 02/11/24 11:56 Review of Systems Review of Systems: ROS unable to be obtained due to dementia [facility] Past Medical History Attestation statement: The following information was validated with the patient. Source: old records reviewed Medical History Atherosclerotic cardiovascular disease Hydronephrosis RBBB Stomal prolapse Crohn's disease Bilateral carotid artery stenosis History of hypertension Surgical History Status post coronary artery bypass graft History of incisional hernia repair History of colostomy (~06/16/18) History of appendectomy History of cardiac catheterization (~03/16/19) Family History Family History Father Heart attack Mother No problems noted. Social History Social History Household Members: Spouse Housing: House Do you presently have visiting nurse or other home services: No Patient Tobacco Use Status: Never used Tobacco Smoked in Last 30 Days: No Use of substances other than those prescribed or required for medical reasons: No Advance Directives: No Advance Directives Information Provided: Yes service: No Physical Exam Vital Signs: Vital Signs: Last Vital Signs Temp 98.2 F 02/11/24 18:15 Pulse 68 02/11/24 18:15 Resp 18 02/11/24 18:15 BP 165/72 H 02/11/24 18:15 Pulse Ox 98 02/11/24 18:15 O2 Del Method Room Air 02/11/24 18:15 BMI result Body Mass Index 26.3 Appearance: Alert. Oriented X 2. No acute distress. Eyes: Pupils equal, round and reactive to light. ENT: Pharynx normal. atraumatic Neck: Normal inspection. Neck supple. CVS: Normal heart rate and rhythm. Pulses normal. Respiratory: No respiratory distress. Breath sounds normal. Abdomen: Soft and nontender. ostomy no signs of herniation p/p Skin: Skin warm and dry. Normal skin color. Normal skin turgor. Extremities: No lower extremity edema. No calf ttp Neuro: Oriented X 2. No motor deficit. No sensory deficit. follows commands Medications Administered Discontinued Medications Generic Name Dose Route Start Last Admin Trade Name Huberq PRN Reason Stop Dose Admin Lactated Ringer's 1,000 mls @ 999 mls/hr 02/11/24 11:57 02/11/24 13:44 Lr IV 02/11/24 12:57 Infused .Q1H1M ONE Infusion Lactated Ringer's 1,000 mls @ 999 mls/hr 02/11/24 16:03 02/11/24 18:10 Lr IV 02/11/24 17:03 Infused .Q1H1M ONE Infusion Ondansetron HCl 4 mg 02/11/24 11:57 02/11/24 12:33 Ondansetron Hcl 4 Mg/2 Ml Vial IVPUSH 02/11/24 11:58 4 mg ONCE ONE Administration Medical Decision Making Medical Decision Making [facility] Narrative: 84 yo female with PMH of cognitive impairment, HLD, CAD s/p CABG, Crohns ds sp colostomy here with c/o witnessed syncope no trauma reported it appears in the setting of viral illness and a sick contact. She has no abdominal pain and her ostomy is productive and non-tender. She has no CP/SOB or signs in VS to suggest VTE. Pulses are intact. At this time will EKG, pain labs, CXR, UA, ortho VS, start on fluids and wait for additional history from . No headache or confusion from baseline to suggest stroke or ICH. Differential Diagnosis Differential Diagnoses: The differential diagnosis associated with the presentation includes syncope - orthostatic, dehydration, anemia viral syndrome no chest pain or dyspnea or signs of DVT - not hypoxic or tachycardic doubt ACS/VTE no headache and at baseline doubt ICH Admission/Observation Consideration of admission/observation: Escalation of care including admission/observation considered after 2L of IVF, orthostatics improved aware and agrees with plan patient feels much better Lab Data [facility] Lab Attestation statement: I reviewed the patient's lab results. 02/11/24 12:27 02/11/24 12:28 Labs: Lab Results 02/11/24 02/11/24 02/11/24 Range/Units 12:27 12:28 14:35 WBC 7.0 (4.8-10.8) X10*3/uL RBC 4.03 L (4.20-5.50) X10*6/uL Hgb 11.6 L (12.0-16.0) g/dl Hct 36.0 L (37.0-47.0) % MCV 89.3 (80.0-98.0) fL MCH 28.8 (27.0-33.0) pg MCHC 32.2 (31.0-35.0) g/dl RDW 13.8 (11.0-16.0) % Plt Count 227 (160-400) X10*3/uL MPV 9.3 L (9.4-12.3) fL Immature Gran % (Auto) 0.3 (0.0-0.4) % Neut % (Auto) 82.1 H (45-73) % Lymph % (Auto) 5.7 L (20-40) % [place] % (Auto) 10.6 (2-11) % Eos % (Auto) 0.9 (0-4) % Baso % (Auto) 0.4 (0-2) % Lymph # (Auto) 0.4 L (1.2-4.9) X10*3/uL [place] # (Auto) 0.7 (0.1-1.2) X10*3/uL Eos # (Auto) 0.1 (0.0-0.4) X10*3/uL Baso # (Auto) 0.0 (0.0-0.2) X10*3/uL Abs Immat Gran (auto) 0.02 (0.00-0.03) X10*3/uL Absolute Neuts (auto) 5.8 (2.0-8.3) x10*3/uL Absolute Nucleated RBC 0.000 (0.0-0.012) X10*3/uL Nucleated RBC % (auto) 0.0 (0.0-0.2) /100WBC Sodium 140 (135-145) mmol/L Potassium 3.6 (3.3-5.1) mmol/L Chloride 109 H (96-108) mmol/L Carbon Dioxide 24 (22-29) mmol/L Anion Gap 11 L (12-20) BUN 14 (9-16) mg/dL Creatinine 0.77 (0.5-1.4) mg/dL Estim Creat Clear Calc 53.9 Estimated GFR > 60 Random Glucose 98 (60-115) mg/dL Calcium 8.6 (8.4-10.2) mg/dL Magnesium 1.8 (1.6-2.6) mg/dL Total Bilirubin 0.8 (0.0-1.0) mg/dL Direct Bilirubin 0.3 (0.0-0.5) mg/dL AST 22 (5-31) U/L ALT < 6 (0-31) U/L Alkaline Phosphatase 105 (39-117) U/L Troponin I High Sens 3.1 (<3.5-17.0) ng/L Total Protein 6.4 L (6.5-8.0) g/dL Albumin 3.7 (3.5-5.0) g/dL Lipase 18 (8-78) U/L Urine Color Yellow Urine Appearance Clear Urine pH 6.0 (5.0-9.0) Ur Specific [place] 1.015 (1.005-1.025) Urine Protein Trace (Neg-Trace) mg/dL Urine Glucose (UA) Negative (Negative) mg/dL Urine Ketones 15 (Negative) mg/dL Urine Blood Trace H (Negative) Urine Nitrite Negative (Negative) Ur Leukocyte Esterase Negative (Negative) Urine RBC 6-10 H (0-2) /HPF Urine WBC 0-5 (0-5) /HPF Ur Squamous Epith Cells 3-5 (0-2) /HPF Urine Bacteria None Seen (None Seen) Hyaline Casts 0-2 (0-2) /LPF Influenza Type A (PCR) NEGATIVE (Negative) Influenza Type B (PCR) NEGATIVE (Negative) RSV RNA Qual (PCR) NEGATIVE (Negative) SARS-CoV-2 RNA (RT-PCR) NEGATIVE (Negative) Independent Interpretation I performed an independent interpretation of an: EKG and Plain X-Ray (normal ) Interpretation: Rate: 58 Rhythm: sinus bradycardia Porter: left Normal P waves. Normal SERA. RBBB ST T wave : inverted t waves ant leads, no TESSY qTC: 461 prior studies: no acute change from priors The study has been interpreted contemporaneously by me. . Radiology Impression Discussion of test interpretation with radiology: I have reviewed the radiologist's reading. Independent Historian Clinical information obtained from an independent historian. History obtained from or confirmed by: Spouse and EMS External Record Review External record reviewed: Inpatient record and Outpatient record Critical Care Time Critical Care Time Critical Care Time: Yes Total Critical Care Time: 45 Attestation: repeat ortho VS, IVF x 2l with resuscitation I attest to this time spent taking care of the patient Discharge Plan Discharge Clinical Impression: Syncope due to orthostatic hypotension Patient Disposition: Home, Self-Care Instructions: Syncope (ED) Additional Instructions: return for any worsening symptoms or concerns monitor for increased confusion, unable to eat or drink, fevers, chest pain trouble breathing or any other concerns rest and stay hydrated. Prescriptions: No Action atorvastatin 40 mg tablet 40 mg PO DAILY aspirin 81 mg tablet,delayed release (DR/EC) 81 mg PO DAILY mesalamine 0.375 gram capsule,extended release 24hr 0.75 g PO DAILY donepezil 5 mg tablet 10 mg PO DAILY Interventions: ED Discharge Assessment Last Done: 02/11/24 18:15 Discharge Date/Time: 02/11/24 18:16 Print Language: Italian
--- NOTE | 2024-02-11 11:58 | ECG_ITS ---
Test Reason : SYNCOPE Blood Pressure : / mmHG Vent. Rate : 058 BPM Atrial Rate : 058 BPM P-R Int : 216 ms QRS Dur : 130 ms QT Int : 470 ms P-R-T Axes : 009 -23 -11 degrees QTc Int : 461 ms Sinus bradycardia with 1st degree A-V block Right bundle branch block Abnormal ECG When compared with ECG of 20-MAR-2023 14:59, No significant change was found Referred By: Catherine Man Electronically Signed By:THA LOPEZ MD
[2024-02-11 12:32] LABS: MANUAL DIFF FLAG NO
[2024-02-11] MEDS: Lactated Ringers 1,000 ML 999 ML IV ×2 (12:32→16:22)
[2024-02-11 12:33] LABS: Basophils Percent Auto 0.4 % (0-2); Eosinophils Absolute Auto 0.1 X10*3/uL (0.0-0.4); Eosinophils Percent Auto 0.9 % (0-4); Hemoglobin 11.6 g/dl (12.0-16.0); Imm Gran Abs Auto 0.02 X10*3/uL (0.00-0.03); Imm Gran Pct Auto 0.3 % (0.0-0.4); Lymphocytes Absolute Auto 0.4 X10*3/uL (1.2-4.9); Lymphocytes Percent Auto 5.7 % (20-40); Mean Corpuscular HGB Conc 32.2 g/dl (31.0-35.0); Mean Corpuscular Hemoglobin 28.8 pg (27.0-33.0); Mean Corpuscular Volume 89.3 fL (80.0-98.0); Mean Platelet Volume 9.3 fL (9.4-12.3); Monocytes Absolute Auto 0.7 X10*3/uL (0.1-1.2); Monocytes Percent Auto 10.6 % (2-11); Neutrophils Absolute Auto 5.8 x10*3/uL (2.0-8.3); Neutrophils Percent Auto 82.1 % (45-73); Platelet Count 227 X10*3/uL (160-400); Red Blood Count 4.03 X10*6/uL (4.20-5.50); Red Cell Distribution Width 13.8 % (11.0-16.0)
[2024-02-11] MEDS: ondansetron HCL 4 MG/2 ML VIAL IVPUSH (12:33)
[2024-02-11 12:57] LABS: Alanine Aminotransferase < 6 U/L (0-31); Albumin Level 3.7 g/dL (3.5-5.0); Alkaline Phosphatase 105 U/L (39-117); Anion Gap 11 (12-20); Aspartate Amino Transferase 22 U/L (5-31); Bilirubin Direct 0.3 mg/dL (0.0-0.5); Bilirubin Total 0.8 mg/dL (0.0-1.0); Blood Urea Nitrogen 14 mg/dL (9-16); Calcium 8.6 mg/dL (8.4-10.2); Carbon Dioxide 24 mmol/L (22-29); Chloride 109 mmol/L (96-108); Creatinine Clr Calc Pharmacy 53.9; Estimated Glomerular Filt Rate > 60; Glucose Random 98 mg/dL (60-115); Lipase 18 U/L (8-78); Magnesium 1.8 mg/dL (1.6-2.6); Potassium 3.6 mmol/L (3.3-5.1); Sodium 140 mmol/L (135-145); Total Protein 6.4 g/dL (6.5-8.0)
[2024-02-11 12:59] LABS: Troponin-I High Sensitivity 3.1 ng/L (<3.5-17.0)
[2024-02-11 13:10] LABS: Influenza A PCR NEGATIVE (Negative); Influenza B PCR NEGATIVE (Negative); Resp Syncy Virus RNA Qual PCR NEGATIVE (Negative); SARS COV2 PCR INHOUSE NEGATIVE (Negative)
--- OUTSIDE RECORDS SUMMARY | 2024-02-11 13:12 | XMS_ITS ---
Author Organization [facility] Address [address] [place] [phone] Care Team Providers Care Aircraft Layout Worker Name Role Phone Rodney Rice Primary Care Provider Sony Manning Unavailable [phone] Dav Romero MD Unavailable Unavailable ALLERGIES No Known Allergies REASON FOR VISIT Patient presents today for crohn's. MEDICATIONS Medication SIG (Take, Route, Frequency, Duration) Notes Start Date End Date Status Atorvastatin Calcium 40 MG 1 tablet Oral ly Once a day for 30 day(s) Active Mesalamine ER 0.375 GM TAKE 2 CAPSULES B Y MOUTH ONCE A DAY EVERY MORNING for 30 Active Donepezil HCl 5 MG 1 tablet at bedtime Orally Once a day for 30 day(s) Active Aspirin Adult Low Dose 81 MG 1 tablet Orally Once a day for 30 day(s) Active PROBLEMS Problem Type ICD Code Onset Dates Problem Status W/U Status Risk SNOMED Code Notes Problem Crohn's disease of both small and large intestine without complication (K50.80) Active confirmed 70941108 VITAL SIGNS BMI 31.91 kg/m2 12/20/2022 Blood pressure systolic 00 mm Hg 12/21/19 23 Blood pressure diastolic 00 mm Hg 023 Height 63.5 in 12/20/2022 Temperature 96.9 degrees Fahrenheit 12/21/19 23 Weight 183 lbs 12/20/2022 Encounters Encounter Location Date Provider Diagnosis [facility] [address] [place] [phone] 12/20/2022 Sony Villagomez Crohn's disease of both small and large intestine without complication K50.80 ASSESSMENTS Encounter Date Diagnosis Assessment Notes Treatment Notes Treatment Clinical Notes 12/20/2022 Crohn's disease of both small and large intestine without complication (ICD-10 - K50.80) 12/20/2022 Other Continue the 2 Apriso(Mesalamine ) daily for the Crohn's PLAN OF TREATMENT Treatment Notes Assessment Notes Other Continue the 2 Apris o(Mesalamine) daily for the Crohn's Next Appt Details Follow Up: 1 Year, Reason: Provider Name:Sony Villagomez , 12/25/2024 01:00:00 PM, [address] [place] [address], [address], [place], [address], Progress Notes * Examination Category Sub-Category Detail Notes General Examination GENERAL APPEARANCE: pleasant , alert female in no acute distress EYES: sclera non-icteric NECK/THYROID: no cervical lymphade nopathy, neck supple HEART: S1, S2 normal LUNGS: clear to auscultatio n bilaterally ABDOMEN: normal bowel sounds, no guarding or rigidity, no hepatosplenomegaly, no masses palpable, soft, nondistended, nontender,no rebound/guarding. NEUROLOGIC: alert and oriented SKIN: nonjaundiced, no spi lilly angiomata. EXTREMITIES: no edema ORAL CAVITY: mucosa moist
--- OUTSIDE RECORDS SUMMARY | 2024-02-11 13:12 | XMS_ITS ---
Author Organization [facility] Address [address] [place] [phone] Care Team Providers Care Instructor Watch Assembly Name Role Phone Rodney Rice Primary Care Provider Sony Manning Unavailable [phone] Dav Romero MD Unavailable Unavailable REASON FOR VISIT please eprescribe mesalamine r/f Encounters Encounter Location Date Provider Diagnosis [facility] [address] [place] [phone] 09/27/2023 Sony Villagomez PLAN OF TREATMENT Next Appt Details Provider Name:Sony Villagomez , 12/25/2024 01:00:00 PM, [address] [place] [address], [address], [place], [address],
--- OUTSIDE RECORDS SUMMARY | 2024-02-11 13:12 | XMS_ITS | Patient Health Record ---
Author Organization [facility] Address [address] [place] [phone] Care Team Providers Care Flight Engineer Inspector Name Role Phone Rodney Rice Primary Care Provider UnavailSony Pineda Unavailable [phone] Dav Romero MD Unavailable Unavailable ALLERGIES No Known Allergies REASON FOR REFERRAL No Information MEDICATIONS Medication SIG (Take, Route, Frequency, Duration) Notes Start Date End Date Status Atorvastatin Calcium 40 MG 1 tablet Oral ly Once a day for 30 day(s) Active Mesalamine ER 0.375 GM TAKE 2 CAPSULES B Y MOUTH ONCE A DAY EVERY MORNING for 30 Active Aspirin Adult Low Dose 81 MG 1 tablet Orally Once a day for 30 day(s) Active Donepezil HCl 5 MG 1 tablet at bedtime Orally Once a day for 30 day(s) Active IMMUNIZATIONS Vaccine Route Administration Date Status Comme nts Flu vaccine no Preserv 3 and > Unknown 10/26/2013 Admin istered Flu vaccine no Preserv 3 and > Unknown 10/27/2014 Admin istered Influenza Unknown 12/13/2015 Administered Influenza Unknown 11/11/2017 Administered Influenza Unknown 11/11/2018 Administered Influenza Unknown 11/12/2019 Administered SOCIAL HISTORY Sex Assigned At : Social History Observation Description Sex Assigned At Unknown PROBLEMS Problem Type ICD Code Onset Dates Problem Status W/U Status Risk SNOMED Code Notes Problem Epigastric pain (R10.13) Active confirmed 17181999 Problem Weight loss (R63.4) Active confirmed 649930873 Problem Hypertension (I10) Active confirmed 383 15701 Problem Crohn's disease of both small and large intestine without complication (K50.80) Active confirmed 52321069 Problem 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) Active confirmed Fistula of small intestine due to Crohn's disease (0623573599659 101) Problem Other hydronephrosis (N13.39) Active confirmed 35436502 Problem Other fatigue (R53.83) Active confirmed 54197979 Problem Early satiety (R68.81) Active confirmed Early satiety (856700180) Problem Gallstones (K80.20) Active confirmed 724875755 Problem Osteoporosis screening (Z13.820) Active confirmed 805119499 Problem Crohns colitis, 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) Active confirmed 14776492 Problem Malaise (R53.81) Active confirmed 19477 1008 Problem Bilateral low back pain without sciatica (M54.5) Active confirmed 094033289 Problem Secondary hypertension (I15.9) Active confirmed 13829464 Problem Crohn's disease of both small and large intestine with intestinal obstruction (K50.812) Active confirmed Intestinal obstruction due to Crohn's disease of small and large intestine (0752863683352 104) Problem Crohn''s disease of colon with other complication (K50.118) Active confirmed 33849634 Problem Crohn''s disease of both small and large intestine with fistula (K50.813) Active confirmed 93710058 VITAL SIGNS Blood pressure diastolic 00 mm Hg 12/24/2023 Height 63.5 in 12/24/2023 Blood pressure systolic 00 mm Hg 12/24/2023 Weight 167 lbs 12/24/2023 BMI 29.12 kg/m2 12/24/2023 Encounters Encounter Location Date Provider Diagnosis [facility] [address] [place] [phone] 12/24/2023 Sony Villagomez Weight loss R63.4 ; Crohn''s disease of colon with other complication K50.118 and Early satiety R68.81 [facility] [address] [place] [phone] 09/27/2023 Sony Villagomez ASSESSMENTS Encounter Date Diagnosis Assessment Notes Treatment Notes Treatment Clinical Notes 12/24/2023 Weight loss (ICD-10 - R63.4) 12/24/2023 Crohn''s disease of colon with other complication (ICD-10 - K50.118) 12/24/2023 Early satiety (ICD-10 - R68.81) Call me if you change your mind about having the upper endoscopy for evaluation of the decreased apetite and weight loss. PLAN OF TREATMENT Pending Test Test Name Order Date CHEM 7 PROFILE 12/06/2014 CHEM 7 PROFILE 04/12/2015 CHEM 7 PROFILE 07/20/2015 BUN 06/10/2015 CREATININE 06/10/2015 LIVER PROFILE 06/10/2015 LIVER PROFILE 12/06/2014 LIVER PROFILE 04/11/2018 LIVER PROFILE 08/09/2014 LIVER PROFILE 04/12/2015 LIVER PROFILE 07/20/2015 CRP 04/12/2015 CRP 07/20/2015 CRP 12/06/2014 CRP 04/11/2018 CRP 08/09/2014 CBC w DIFF 06/10/2015 CBC with MANUAL DIFFERENTIAL 08/09/2014 CBC with MANUAL DIFFERENTIAL 04/11/2018 CBC with MANUAL DIFFERENTIAL 04/12/2015 CBC with MANUAL DIFFERENTIAL 07/20/2015 CBC with MANUAL DIFFERENTIAL 12/06/2014 SED RATE (ESR) 08/09/2014 SED RATE (ESR) 04/11/2018 SED RATE (ESR) 04/12/2015 SED RATE (ESR) 07/20/2015 SED RATE (ESR) 12/06/2014 HEPATITIS B PROFILE 08/09/2014 CLOSTRIDIUM DIFF TOXIN A&B (C DIFF) 01/11 URINALYSIS + MICROSCOPIC 04/07/2015 URINALYSIS + MICROSCOPIC 04/08/2015 STOOL WBC 01/28/2014 CT ABD & PELVIS WITH PO CONT ONLY 2015 NUC HIDA SCAN 11/30/2014 XR GI SMALL BOWEL SERIES 04/11/2018 BONE DENSITY DEXA 12/12/2014 PROMETHEUS THIOPURINE METABOLITES (TPMT) 07/09/2015 Future Test Test Name Order Date FLEXIBLE SIGMOIDOSCOPY, DIAGNOSTIC 11/30 UPPER GI ENDOSCOPY 11/30/2014 Next Appt Details Provider Name:Sony Willett Hernando , 12/25/2024 01:00:00 PM, [address], [address], [place], [address], Insurance Providers Payer Name Payer Address Payer Phone Subscriber Number Group Number Insured Name Patient Relationship to Insured Coverage Start Date Coverage End Date MEDICARE OF [place] [address] [place] [id number] LOIDA PRADO Self - patient is the insured [employer] ATT[employer] CLAIMS [address] [place] [address] [id number] LOIDA PRADO Self - patient is the insured MEDICAL (GENERAL) HISTORY Medical History History ICD Code Neg colonoscopy 03-14-2007 and in 2001 except for hyperplastic polyps, divertciulosis, internal hemorrhoids Hopsitalized 11/2012 with an episode of acute colitis--this was probable ischemic coilitis, or possibly an episode of infectious colitis-she was treated with antibiotics and rapidly improved TIA X 2 Denies MS,DM,Lung disease,renal disease, CVA Negative colonoscopy in 04/2013 other naeem n some erythema in the sigmoid colon Crohn's disease ---Colonosco py in 01/2014 with a segmental colitis of the sigmoid colon--started on Lialda and Budesonide 9mg daily--- she has ultimately needed intermittent courses of prednisone and was started on Humira injections in September of 2014--- she was hospitalized twice in 2014 as well requiring IV steroids--- since November of 2014 she has been unable to stay off prednisone to any significant degree and had azathioprine added to her medical regimen at the June 10, 2015 office visit. She also developed a left-sided hydronephrosis in relation to the colonic inflammation in the left colon with an associated inflammatory mass and questionable small abscess--- however, the questionable abscess was not felt to be significant enough to require drainage after I reviewed all of her scans with Dr. Crenshaw. She stopped her azathioprine in June 2015 due to nausea and vomiting, and also stopped her Humira injections in June 2015 because she had a mole removed and thought that the Humira was interfering with healing.She sees Dr. Grimes, III, for the left renal issue--normal BUN/Cr in 09/2015. Hospitalized in 02/2018 for a Crohn's fla re---quickly subsided with steroids Ileocolonic fistulae and bowel obstuctio ns in 04/2018 as below MS 03/2019 with a subsequent 2V CABG Memory issues as of the 12/2022 OV Surgical History Surgery Date(Month/Year) appendectomy 04/2018--colonic obstruction with diverting colostomy in early April 2018; subsequent SBO and laparotmy for lysis of adhesions and an enteroenteric bypass--no SB was resected. She also had to have some surgery for a wound infection. She sees Dr. Romero. 2V CABG 03/2019
[2024-02-11 14:57] LABS: Appearance Urine Clear; Color Urine Yellow; Glucose Urine UA Negative (Negative); Leukocyte Esterase Urine Negative (Negative); Nitrite Urine Negative (Negative); Specific Gravity - Urine 1.015 (1.005-1.025); UMIC TRIGGER UACC YES; Urine Blood Trace (Negative); Urine Ketones 15 mg/dL (Negative); Urine Protein Trace mg/dL (Neg-Trace)
[2024-02-11 15:02] LABS: Bacteria Urine None Seen (None Seen); Hyaline Casts Urine 0-2 /LPF (0-2); WBC Urine 0-5 /HPF (0-5)
== END 2024-02-11 18:16 | disposition home or self-care (01) ==
PROVIDERS: Emergency Provider Emergency Medicine
DX: R55 Syncope and collapse (principal); I45.10 Unspecified right bundle-branch block; R00.1 Bradycardia, unspecified; I25.10 Atherosclerotic heart disease of native coronary artery without angina pectoris; R11.0 Nausea; Z79.899 Other long term (current) drug therapy; Z03.818 Encounter for observation for suspected exposure to other biological agents ruled out
CPT/HCPCS: 0241U; 36415; 71045; 80048; 80076; 81001; 83690; 83735; 84484; 85025; 93005; 96361; 96374; 99284; 99285; J2405; J7120

== ENCOUNTER → 2024-02-11 11:58 | Outpatient (BNV) | payer MEDICARE, SELFPAY | PROVIDERS: Emergency Provider Emergency Medicine; Visit Provider Radiology Diagnostic Radiology | DX: R55 Syncope and collapse (principal) | CPT/HCPCS: 71045 ==

== ENCOUNTER → 2024-02-11 11:58 | Outpatient (BNV) | payer MEDICARE, SELFPAY | PROVIDERS: Emergency Provider Emergency Medicine; Visit Provider Internal Medicine Cardiovascular Disease | DX: R55 Syncope and collapse (principal); R00.1 Bradycardia, unspecified; I45.10 Unspecified right bundle-branch block; R94.31 Abnormal electrocardiogram [ECG] [EKG] | CPT/HCPCS: 93010 ==

== ENCOUNTER 2024-11-02 10:15 | Outpatient (AMB) | payer MEDICARE, SELFPAY ==
--- NOTE | 2024-11-02 10:30 | A.OFFVIS_ITS ---
Vital Signs 11/02/24 10:32 Height 5 ft 3 in Weight 163 lb 2.273 oz BMI 28.9 BP 120/62 Blood Pressure Location Lt brachial Position Sitting Pulse 75 Pulse Source Monitor Intake Visit Reasons: 1 year follow-up with ekg Allergies No Known Allergies Allergy (Verified 02/11/24 11:56) Medication List - Last Reconciled 11/02/24 by Klaus Moore MD aspirin 81 mg PO DAILY atorvastatin 40 mg PO DAILY donepezil 10 mg PO DAILY mesalamine ER 0.75 grams PO DAILY HPI Comments Details: Farhana returns for follow-up regarding coronary disease. After admission for NSTEMI in 2019, she underwent cardiac catheterization showing 2 vessel CAD including LAD and RCA. Subsequently, underwent coronary artery bypass surgery. She describes some orthostatic dizziness type symptoms but otherwise she feels fine for the most part. Frailty from age but otherwise getting along. [facility] Medical History Atherosclerotic cardiovascular disease Hydronephrosis RBBB Stomal prolapse Crohn's disease Bilateral carotid artery stenosis History of hypertension Surgical History Status post coronary artery bypass graft History of incisional hernia repair History of colostomy (~06/16/18) History of appendectomy History of cardiac catheterization (~03/16/19) Family History Father Heart attack Mother No problems noted. Social History Household Members: Spouse Housing: House Do you presently have visiting nurse or other home services: No Patient Tobacco Use Status: Never used Tobacco service: No Review of Systems Const Denies weakness ENT Denies dizziness Card Denies chest pain, Denies chest pain with activity, Denies syncope, Denies rapid heart rate, Denies pedal edema, Denies edema, Denies leg edema, Denies lightheadedness, Denies palpitations, Denies dyspnea, Denies dyspnea on exertion and Denies orthopnea Resp Denies cough, Denies dyspnea and Denies dyspnea on exertion GI Denies hematochezia and Denies change in stool character Musc Denies abnormal gait, Denies muscle cramps, Denies muscle weakness, Denies nu mbness, Denies radiating pain into limb and Denies tingling Neuro Denies abnormal gait, Denies dizziness, Denies syncope, Denies numbness, Denies tingling and Denies weakness Endo Denies palpitations Physical Exam Vital Signs: Last Vital Signs Pulse 75 11/02/24 10:32 BP 120/62 11/02/24 10:32 BMI result Body Mass Index 28.9 Const General: comfortable and no acute distress Orientation/consciousness: patient oriented x3 HEENT Other: Unremarkable Head: Yes normal to inspection Neck Neck: Yes normal visual inspection Chest Chest palpation & inspection: normal inspection of the chest Resp Auscultation: clear to auscultation bilaterally Cardio Palpation: normal PMI Heart sounds: S1 normal heart sound present, S2 normal heart sound present, no gallops, no murmurs and no rubs GI Palpation (GI): Soft to palpation Back/Spine/Pelvis Other: unremarkable Skin General skin exam: no rashes or lesions noted Neuro General: patient oriented x3 Extrem General: Yes normal to inspection Psych Mental Status: mental status grossly normal Office Procedures EKG Details: EKG with underlying sinus rhythm at 73/Min; borderline WI prolongation to 200 milliseconds; right bundle-branch block; cannot exclude old inferior infarct; [place]. [id number][id number], Complete Assessment & Plan Assessment & Plan (1) Atherosclerotic cardiovascular disease: Code(s): I25.10 - Atherosclerotic heart disease of [place] coronary artery without angina pectoris Category: Medical Plan: s/p CABG. Stable. Continue aspirin and statins. Last available LDL 51 mg/dL. (2) RBBB: Code(s): I45.10 - Unspecified right bundle-branch block Category: Medical Plan: Can be followed on EKGs. (3) Atrial arrhythmia: Code(s): I49.8 - Other specified cardiac arrhythmias Category: Medical Plan: Previously noted to have high burden of supraventricular ectopy on Holter. Has been on beta-blockers but not anymore. Had some side effects. Also with conduction system disease, may keep off. Plan Discussed with significant other. Coding Level of Care Code Est Pt Level 4 (13132) Complex EM visit Add On G2211 Diagnoses Atherosclerotic cardiovascular disease I25.10 RBBB I45.10 Atrial arrhythmia I49.8 CPT Codes EKG - CPT: 29315-[id number], Complete ([id number])
[2024-11-02 10:32] VITALS: BP 120/62; PULSE 75; BMI 28.9
--- OUTSIDE RECORDS SUMMARY | 2024-11-02 12:35 | XMS_ITS | Patient Health Record ---
Author Organization [facility] Address [address] [place] [id number] Care Team Providers Care Director Medicaid Name Role Phone Rodney Rice Primary Care Provider UnavailSony Pineda Unavailable [phone] Dav Romero MD Unavailable Unavailable Allergies No Known Allergies Reason For Referral No Information Medications Medication SIG (Take, Route, Frequency, Duration) Notes [...] Once a day for 30 day(s) Active Immunizations Vaccine Route Administration Date Status Comme nts Flu vaccine no Preserv 3 and > Unknown 10/26/2013 Admin istered Flu vaccine no Preserv 3 and > Unknown 10/27/2014 Admin istered Influenza Unknown 12/13/2015 Administered Influenza Unknown 11/11/2017 Administered Influenza Unknown 11/11/2018 Administered Influenza Unknown 11/12/2019 Administered Problems Problem Type SNOMED Code ICD Code Onset Dates Problem Status W/U Status Risk Notes Problem 88490644 Epigastric pain (R10.13) Active confirmed Problem 560862815 Weight loss (R63.4) Active confirmed Problem 92801205 Hypertension (I10) Active confirmed Problem 32705147 Crohn's disease of both small and large intestine without complication (K50.80) Active confirmed Problem Fistula of small intestine due to Crohn's disease (22178803382671 01) 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) Active confirmed Problem 29358620 Other hydronephrosis (N13.39) Active confirmed Problem 10187413 Other fatigue (R53.83) Active confirmed Problem Early satiety (919251176) Early satiety (R68.81) Active confirmed Problem 614696611 Gallstones (K80.20) Active confirmed Problem 871597940 Osteoporosis screening (Z13.820) Active confirmed Problem 63271948 Crohns colitis, 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) Active confirmed Problem 783474237 Malaise (R53.81) Active confirmed Problem 104515891 Bilateral low ba ck pain without sciatica (M54.5) Active confirmed Problem 27755492 Secondary hypertension (I15.9) Active confirmed Problem Intestinal obstruction due to Crohn's disease of small and large intestine (24572724243798 04) Crohn's disease of both small and large intestine with intestinal obstruction (K50.812) Active confirmed Problem 76675296 Crohn''s disease of colon with other complication (K50.118) Active confirmed Problem 92834314 Crohn''s disease of both small and large intestine with fistula (K50.813) Active confirmed Vital Signs Blood pressure diastolic 00 mm Hg 12/24/2023 Height 63.5 in 12/24/2023 Blood pressure systolic 00 mm Hg 12/24/2023 Weight 167 lbs 12/24/2023 BMI 29.12 kg/m2 12/24/2023 Encounters Encounter Location Date Provider Diagnosis [facility] [address] [place] [address] 12/24/2023 Sony Villagomez Weight loss R63.4 ; Crohn''s disease of colon with other complication K50.118 and Early satiety R68.81 Assessments Encounter Date Diagnosis (ICD Code) Assessment Notes Treatment Notes Treatment Clinical Notes Section Notes 12/24/2023 Weight loss (ICD-10 - R63.4) Overall, Farhana is not having any particular symtoms in relation to the long-standing underlying Crohn's disease. Her colostomy seems to be working well. She is not having any symptoms suggestive of bleeding or obstruction. I did advise her to continue on her low dose of mesalamine. I don't think she needs any diagnostic nor therapeutic intervention in this regard. However, we did review my concerns regarding her symptoms of early satiety and significant weight loss. I did recommend consideration for an upper endoscopy to assess for anything such as silent ulcer disease or even an upper GI neoplasm. We did review that her poor eating and weight loss could certainly be in relation to her cognitive issues as well. Nonetheless, I would recommend an upper endoscopy for definitive evaluation to rule out any other etiology given her significant weight loss. However, at this time Farhana and her would both like to hold off on her undergoing any procedures and anesthesia given her age and some cognitive issues. I advised them to think about this and to certainly call me if they change their mind. In the meantime, I did advise them to maximize her nutrition with supplements as well as regular food. I have given her an appointment see me in one year for a followup visit but advised them to definitely call me if she has any problems or questions I can be of assistance with. I did advise them to call as well to schedule her upper endoscopy if the upper GI complaints and weight loss persist. I did ask them to review this with you as well. Farhana and her seemed very comfortable with this plan. Thank you again for allowing me to participate in Farhana's care. I shall continue to keep you advised of her progress as needed. 12/24/2023 Crohn''s disease of colon with other complication (ICD-10 - K50.118) Overall, Farhana is not having any particular symtoms in relation to the long-standing underlying Crohn's disease. Her colostomy seems to be working well. She is not having any symptoms suggestive of bleeding or obstruction. I did advise her to continue on her low dose of mesalamine. I don't think she needs any diagnostic nor therapeutic intervention in this regard. However, we did review my concerns regarding her symptoms of early satiety and significant weight loss. I did recommend consideration for an upper endoscopy to assess for anything such as silent ulcer disease or even an upper GI neoplasm. We did review that her poor eating and weight loss could certainly be in relation to her cognitive issues as well. Nonetheless, I would recommend an upper endoscopy for definitive evaluation to rule out any other etiology given her significant weight loss. However, at this time Farhana and her would both like to hold off on her undergoing any procedures and anesthesia given her age and some cognitive issues. I advised them to think about this and to certainly call me if they change their mind. In the meantime, I did advise them to maximize her nutrition with supplements as well as regular food. I have given her an appointment see me in one year for a followup visit but advised them to definitely call me if she has any problems or questions I can be of assistance with. I did advise them to call as well to schedule her upper endoscopy if the upper GI complaints and weight loss persist. I did ask them to review this with you as well. Farhana and her seemed very comfortable with this plan. Thank you again for allowing me to participate in Farhana's care. I shall continue to keep you advised of her progress as needed. 12/24/2023 Early satiety (ICD-10 - R68.81) Call me if you change your mind about having the upper endoscopy for evaluation of the decreased apetite and weight loss. Overall, Farhana is not having any particular symtoms in relation to the long-standing underlying Crohn's disease. Her colostomy seems to be working well. She is not having any symptoms suggestive of bleeding or obstruction. I did advise her to continue on her low dose of mesalamine. I don't think she needs any diagnostic nor therapeutic intervention in this regard. However, we did review my concerns regarding her symptoms of early satiety and significant weight loss. I did recommend consideration for an upper endoscopy to assess for anything such as silent ulcer disease or even an upper GI neoplasm. We did review that her poor eating and weight loss could certainly be in relation to her cognitive issues as well. Nonetheless, I would recommend an upper endoscopy for definitive evaluation to rule out any other etiology given her significant weight loss. However, at this time Farhana and her would both like to hold off on her undergoing any procedures and anesthesia given her age and some cognitive issues. I advised them to think about this and to certainly call me if they change their mind. In the meantime, I did advise them to maximize her nutrition with supplements as well as regular food. I have given her an appointment see me in one year for a followup visit but advised them to definitely call me if she has any problems or questions I can be of assistance with. I did advise them to call as well to schedule her upper endoscopy if the upper GI complaints and weight loss persist. I did ask them to review this with you as well. Farhana and her seemed very comfortable with this plan. Thank you again for allowing me to participate in Farhana's care. I shall continue to keep you advised of her progress as needed. Plan Of Treatment Pending Test Test Name Order Date CHEM 7 PROFILE 12/06/2014 CHEM 7 PROFILE 07/20/2015 CHEM 7 PROFILE 04/12/2015 BUN 06/10/2015 CREATININE 06/10/2015 LIVER PROFILE 08/09/2014 LIVER PROFILE 04/11/2018 LIVER PROFILE 12/06/2014 LIVER PROFILE 07/20/2015 LIVER PROFILE 06/10/2015 LIVER PROFILE 04/12/2015 CRP 04/12/2015 CRP 08/09/2014 CRP 04/11/2018 CRP 12/06/2014 CRP 07/20/2015 CBC w DIFF 06/10/2015 CBC with MANUAL DIFFERENTIAL 04/12/2015 CBC with MANUAL DIFFERENTIAL 08/09/2014 CBC with MANUAL DIFFERENTIAL 04/11/2018 CBC with MANUAL DIFFERENTIAL 12/06/2014 CBC with MANUAL DIFFERENTIAL 07/20/2015 SED RATE (ESR) 07/20/2015 SED RATE (ESR) 04/12/2015 SED RATE (ESR) 08/09/2014 SED RATE (ESR) 04/11/2018 SED RATE (ESR) 12/06/2014 HEPATITIS B PROFILE 08/09/2014 CLOSTRIDIUM DIFF TOXIN A&B (C DIFF) 01/11 URINALYSIS + MICROSCOPIC 04/08/2015 URINALYSIS + MICROSCOPIC 04/07/2015 STOOL WBC 01/28/2014 CT ABD & PELVIS WITH PO CONT ONLY 2015 NUC HIDA SCAN 11/30/2014 XR GI SMALL BOWEL SERIES 04/11/2018 BONE DENSITY DEXA 12/12/2014 PROMETHEUS THIOPURINE METABOLITES (TPMT) 07/09/2015 Future Test Test Name Order Date FLEXIBLE SIGMOIDOSCOPY, DIAGNOSTIC 11/30 UPPER GI ENDOSCOPY 11/30/2014 Next Appt Details Provider Name:Sony Villagomez , 12/24/2024 10:20:00 AM, [address] [facility], [address], [place], [address], Insurance Providers Payer Name Payer Address Payer Phone Subscriber Number Group Number Insured Name Patient Relationship to Insured Coverage Start Date Coverage End Date MEDICARE OF [place] [address] [place] [id number] FARHANA PRADO Self - patient is the insured [employer] ATT[employer] CLAIMS [address] [place] [address] [phone] [id number] FARHANA PRADO Self - patient is the insured Medical (General) History Medical History History ICD Code Neg colonoscopy 03-14-2007 and in 2001 except for hyperplastic polyps, divertciulosis, internal hemorrhoids Hopsitalized 11/2012 with an episode of acute colitis--this was probable ischemic coilitis, or possibly an episode of infectious colitis-she was treated with antibiotics and rapidly improved TIA X 2 Denies NE,DM,Lung disease,renal disease, CVA Negative colonoscopy in 04/2013 [...] bowel obstuctio ns in 04/2018 as below NE 03/2019 with a subsequent 2V CABG Memory [...]
== END 2024-11-02 10:49 | disposition home or self-care (01) ==
LOC: HO.HCS 10:15
PROVIDERS: PCP Family Medicine; Visit Provider Internal Medicine
DX: I25.10 Atherosclerotic heart disease of native coronary artery without angina pectoris (principal); I45.10 Unspecified right bundle-branch block; I49.8 Other specified cardiac arrhythmias
CPT/HCPCS: 93010; 99214; G2211

== ENCOUNTER → 2024-11-02 10:15 | Outpatient (BNVA) | payer MEDICARE, SELFPAY | PROVIDERS: PCP Family Medicine; Visit Provider Internal Medicine | DX: I25.10 Atherosclerotic heart disease of native coronary artery without angina pectoris (principal); I45.10 Unspecified right bundle-branch block; I49.8 Other specified cardiac arrhythmias; R94.31 Abnormal electrocardiogram [ECG] [EKG] | CPT/HCPCS: 93005; 99212 ==